=== PATIENT | male | born 1980 | race Caucasian/White ===

== ENCOUNTER 2017-01-10 12:30 | Emergency (ER) | payer BC, OTHER ==
[2017-01-10 12:38] VITALS: BP 144/88; PULSE 79; RESP 18; TEMP 97
--- NOTE | 2017-01-10 13:26 | ED ---
General Adult HPI - General Chief complaint: Extremity Problem,Nontraumatic Stated complaint: Arm Numbness/Blurred Vision Time Seen by Provider: 01/10/17 13:00 Source: patient, RN notes reviewed Mode of arrival: ambulatory Limitations: no limitations - History of Present Illness Initial comments: This is a 36-year-old male who presents emergency Department complaining of which sensation all 4 extremities. Patient states he was getting up to go work on his car and he noticed some dizziness and then he had some hot sensation in both of his legs though he did not lose any power or ability to move his legs. Patient then noticed that same strange feeling in both of his hands eventually the right hand cleared up but he has that weird sensation continuing his hand now he can feel everything that he touches any states he has not lost any strength. Patient has full range of motion of all 4 extremities. Patient denies any current headache. Patient denies any recent fever chills or cough. Patient denies any near syncopal episode or syncopal episode. Patient denies any chest pain palpitations difficulty breathing or shortness of breath. Patient does admit that he is a smoker and occasional pot smoker though he has not smoked any pot today. Patient denies any other drug use or alcohol use. Patient denies any abdominal pain. Patient denies nausea vomiting or diarrhea. Patient denies any problems with eating. Patient denies any pain of any sort. Patient's only complaint currently see has nowhere sensation in his right hand but he can feel everything and move everything. 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 - Related Data Home Medications Medication Instructions Recorded Confirmed No Known Home Medications [No 01/10/17 01/10/17 Known Home Medications] Allergies Allergy/AdvReac Type Severity Reaction Status Date / Time No Known Allergies Allergy Verified 01/10/17 13:14 Review of Systems ROS Statement: Those systems with pertinent positive or pertinent negative responses have been documented in the HPI. ROS Other: All systems not noted in ROS Statement are negative. 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 Patient is nontoxic and well- hydrated and is in no acute distress. ENT: Neck is soft and supple. No significant lymphadenopathy is noted. Oropharynx is clear. Moist mucous membranes. Neck has full range of motion without eliciting any pain. EYES: The sclera were anicteric and conjunctiva were pink and moist. Extraocular movements were intact and pupils were equal round and reactive to light. Eyelids were unremarkable. PULMONARY: Unlabored respirations. Good breath sounds bilaterally. No audible rales rhonchi or wheezing was noted. CARDIOVASCULAR: There is a regular rate and rhythm without any murmurs gallops or rubs. ABDOMEN: Soft and nontender with normal bowel sounds. No palpable organomegaly was noted. There is no palpable pulsatile mass. SKIN: Skin is clear with no lesions or rashes and otherwise unremarkable. NEUROLOGIC: Patient is alert and oriented x3. Cranial nerves II through XII are grossly intact. Motor and sensory are also intact. Normal speech, volume and content. Symmetrical smile. MUSCULOSKELETAL: Normal extremities with adequate strength and full range of motion. No lower extremity swelling or edema. No calf tenderness. LYMPHATICS: No significant lymphadenopathy is noted PSYCHIATRIC: Normal psychiatric evaluation. Normal interpersonal interactions appears functionally intact in deals appropriately with others. No signs of depression. No signs of anxiety. Limitations: no limitations Course Vital Signs 01/10/17 12:35 Temperature 97.0 F L Pulse Rate 79 Respiratory 18 Rate Blood Pressure 144/88 O2 Sat by Pulse 100 Oximetry Medical Decision Making - Medical Decision Making EKG shows normal sinus rhythm at 64 bpm IA interval is 170 QRS 106 QT interval 410 QTC is 422. Patient's EKG does show some T-wave inversions in precordial leads as compared to an old EKG and there are no new changes. I reevaluated the patient I went in the room he was using his left hand to operate his phone without any problem or distress. Patient states he was feeling a little better at this time. - Lab Data Result diagrams: 01/10/17 13:25 01/10/17 13:25 Lab Results 01/10/17 01/10/17 Range/Units 13:25 13:25 WBC 7.5 (3.8-10.6) k/uL RBC 4.69 (4.30-5.90) m/uL Hgb 14.6 (13.0-17.5) gm/dL Hct 42.9 (39.0-53.0) % MCV 91.5 (80.0-100.0) fL MCH 31.1 (25.0-35.0) pg MCHC 34.0 (31.0-37.0) g/dL RDW 13.0 (11.5-15.5) % Plt Count 179 (150-450) k/uL Neutrophils % 77 % Lymphocytes % 15 % Monocytes % 5 % Eosinophils % 1 % Basophils % 0 % Neutrophils # 5.8 (1.3-7.7) k/uL Lymphocytes # 1.1 (1.0-4.8) k/uL Monocytes # 0.4 (0-1.0) k/uL Eosinophils # 0.1 (0-0.7) k/uL Basophils # 0.0 (0-0.2) k/uL Sodium 142 (137-145) mmol/L Potassium 4.3 (3.5-5.1) mmol/L Chloride 107 (98-107) mmol/L Carbon Dioxide 25 (22-30) mmol/L Anion Gap 10 mmol/L BUN 11 (9-20) mg/dL Creatinine 1.04 (0.66-1.25) mg/dL Est GFR (MDRD) Af Amer >60 (>60 ml/min/1.73 sqM) Est GFR (MDRD) Non-Af >60 (>60 ml/min/1.73 sqM) Glucose 93 (74-99) mg/dL Calcium 9.2 (8.4-10.2) mg/dL Magnesium 2.0 (1.6-2.3) mg/dL Total Bilirubin 1.0 (0.2-1.3) mg/dL AST 19 (17-59) U/L ALT 24 (21-72) U/L Alkaline Phosphatase 88 (38-126) U/L Total Protein 7.4 (6.3-8.2) g/dL Albumin 4.2 (3.5-5.0) g/dL Disposition Clinical Impression: Paresthesias Disposition: HOME SELF-CARE Condition: Good Instructions: Paresthesia (ED) Referrals: None,Stated [Primary Care Provider] - 1-2 days Time of Disposition: 14:05
[2017-01-10 13:38] LABS: Basophils % (A) 0 %; CH 31.2; CHCM 34.2; Eosinophils # (A) 0.1 k/uL (0-0.7); Eosinophils % (A) 1 %; HCT 42.9 % (39.0-53.0); HGB 14.6 gm/dL (13.0-17.5); Luc # (Auto) 0.09; Luc % (Auto) 1; Lymphocytes # (A) 1.1 k/uL (1.0-4.8); Lymphocytes % (A) 15 %; MCH 31.1 pg (25.0-35.0); MCV 91.5 fL (80.0-100.0); Monocytes # (A) 0.4 k/uL (0-1.0); Monocytes % (A) 5 %; Neutrophils # (A) 5.8 k/uL (1.3-7.7); Neutrophils % (A) 77 %; RBC 4.69 m/uL (4.30-5.90); WBC 7.5 k/uL (3.8-10.6); WBC (Perox) 7.59
[2017-01-10 13:47] LABS: ALT 24 U/L (21-72); AST 19 U/L (17-59); Alkaline Phosphatase 88 U/L (38-126); Anion Gap 10 mmol/L; Blood Urea Nitrogen 11 mg/dL (9-20); Calcium 9.2 mg/dL (8.4-10.2); Carbon Dioxide 25 mmol/L (22-30); Chloride 107 mmol/L (98-107); Glucose 93 mg/dL (74-99); Non-African American GFR(MDRD) >60 (>60 ml/min/1.73 sqM); Potassium 4.3 mmol/L (3.5-5.1); Sodium 142 mmol/L (137-145); Total Protein 7.4 g/dL (6.3-8.2)
== END 2017-01-10 14:18 | disposition home or self-care (01) ==
LOC: EC 12:30
DX: R20.2 Paresthesia of skin (principal); F17.200 Nicotine dependence, unspecified, uncomplicated
CPT/HCPCS: 36415; 80053; 83735; 85025; 93005; 99284

== ENCOUNTER 2018-05-02 14:01 | Inpatient (IN) | payer BC, OTHER ==
[2018-05-02] MEDS ORDERED: SODIUM CHLORIDE 0.9% 1,000 ML IV STA (14:42)
--- NOTE | 2018-05-02 15:13 | ED ---
General Adult HPI - General Chief complaint: Neuro Symptoms/Deficit Stated complaint: Slurred speech/weakness Time Seen by Provider: 05/02/18 14:36 Source: patient, RN notes reviewed, old records reviewed Mode of arrival: ambulatory Limitations: no limitations - History of Present Illness Initial comments: This is a 2-year-old male to the ER for evaluation today. Patient has evaluation regarding 3 days of neurological complaint, patient is had some slurred speech difficulties and wants to. Patient episode of weakness on Wednesday, symptoms started on Wednesday night. Patient's significant other was able to get patient coming to the ER today for evaluation. Patient does have history of smoking, denies drugs or alcohol, occasionally uses marijuana, patient also has remote cardiac history of what she is unsure. Patient is recent travel history no sick contacts no fevers, no headaches. No visual no vision changes and no hearing changes. Currently patient still states he has trouble finding his words and history - Related Data Home Medications Medication Instructions Recorded Confirmed No Known Home Medications 01/10/17 05/02/18 Allergies Allergy/AdvReac Type Severity Reaction Status Date / Time No Known Allergies Allergy Verified 05/02/18 14:40 Review of Systems ROS Statement: Those systems with pertinent positive or pertinent negative responses have been documented in the HPI. ROS Other: All systems not noted in ROS Statement are negative. 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) Past Psychological History: No Psychological Hx Reported Smoking Status: Current every day smoker Past Alcohol Use History: None Reported Past Drug Use History: Marijuana - Past Family History Father History Unknown: Yes Mother Family Medical History: Cancer Additional Family Medical History / Comment(s): mom and grandmother both had breast cancer General Exam - General Exam Comments Initial Comments: nih 1 Limitations: no limitations General appearance: alert, in no apparent distress Head exam: Present: atraumatic, normocephalic, normal inspection Eye exam: Present: normal appearance, PERRL, EOMI. Absent: scleral icterus, conjunctival injection, periorbital swelling ENT exam: Present: normal exam, mucous membranes moist Neck exam: Present: normal inspection. Absent: tenderness, meningismus, lymphadenopathy Respiratory exam: Present: normal lung sounds bilaterally. Absent: respiratory distress, wheezes, rales, rhonchi, stridor Cardiovascular Exam: Present: regular rate, normal rhythm, normal heart sounds. Absent: systolic murmur, diastolic murmur, rubs, gallop, clicks GI/Abdominal exam: Present: soft, normal bowel sounds. Absent: distended, tenderness, guarding, rebound, rigid Extremities exam: Present: normal inspection, full ROM, normal capillary refill. Absent: tenderness, pedal edema, joint swelling, calf tenderness Back exam: Present: normal inspection Neurological exam: Present: alert, oriented X3, CN II-XII intact Psychiatric exam: Present: normal affect, normal mood Skin exam: Present: warm, dry, intact, normal color. Absent: rash Course Vital Signs 05/02/18 05/02/18 05/02/18 14:10 15:00 16:00 Temperature 98.5 F 97.2 F L 98.0 F Pulse Rate 68 58 L 52 L Respiratory 18 16 16 Rate Blood Pressure 128/78 122/70 137/88 O2 Sat by Pulse 98 99 99 Oximetry 05/02/18 17:00 Temperature Pulse Rate 50 L Respiratory 18 Rate Blood Pressure 142/80 O2 Sat by Pulse 98 Oximetry - Reevaluation(s) Reevaluation #1: This findings and results of patient, questions answered EKG Findings - EKG Comments: EKG Findings:: EKG shows sinus rhythm rate of 61, [place] 172, QRS 90, QTc 434 Medical Decision Making - Medical Decision Making 38 male the ER for evaluation positive stroke, positive CVA, patient to be admitted for neurological evaluation - Lab Data Result diagrams: 05/04/18 05:48 05/04/18 05:48 Lab Results 05/02/18 05/02/18 05/02/18 Range/Units 15:10 15:10 15:10 WBC 5.8 (3.8-10.6) k/uL RBC 4.40 (4.30-5.90) m/uL Hgb 13.4 (13.0-17.5) gm/dL Hct 39.9 (39.0-53.0) % MCV 90.6 (80.0-100.0) fL MCH 30.4 (25.0-35.0) pg MCHC 33.5 (31.0-37.0) g/dL RDW 13.4 (11.5-15.5) % Plt Count 156 (150-450) k/uL Neutrophils % 61 % Lymphocytes % 29 % Monocytes % 7 % Eosinophils % 2 % Basophils % 0 % Neutrophils # 3.5 (1.3-7.7) k/uL Lymphocytes # 1.7 (1.0-4.8) k/uL Monocytes # 0.4 (0-1.0) k/uL Eosinophils # 0.1 (0-0.7) k/uL Basophils # 0.0 (0-0.2) k/uL PT (9.0-12.0) sec INR (<1.2) APTT (22.0-30.0) sec Sodium 138 (137-145) mmol/L Potassium 4.0 (3.5-5.1) mmol/L Chloride 108 H (98-107) mmol/L Carbon Dioxide 25 (22-30) mmol/L Anion Gap 5 mmol/L BUN 10 (9-20) mg/dL Creatinine 0.90 (0.66-1.25) mg/dL Est GFR (CKD-EPI)AfAm >90 (>60 ml/min/1.73 sqM) Est GFR (CKD-EPI)NonAf >90 (>60 ml/min/1.73 sqM) Glucose 91 (74-99) mg/dL Calcium 9.0 (8.4-10.2) mg/dL Total Bilirubin 0.6 (0.2-1.3) mg/dL AST 18 (17-59) U/L ALT 25 (21-72) U/L Alkaline Phosphatase 80 (38-126) U/L Total Creatine Kinase 46 L (55-170) U/L CK-MB (CK-2) <0.2 (0.0-2.4) ng/mL CK-MB (CK-2) Rel Index Troponin I <0.012 (0.000-0.034) ng/mL Total Protein 6.6 (6.3-8.2) g/dL Albumin 3.8 (3.5-5.0) g/dL 05/02/18 Range/Units 15:10 WBC (3.8-10.6) k/uL RBC (4.30-5.90) m/uL Hgb (13.0-17.5) gm/dL Hct (39.0-53.0) % MCV (80.0-100.0) fL MCH (25.0-35.0) pg MCHC (31.0-37.0) g/dL RDW (11.5-15.5) % Plt Count (150-450) k/uL Neutrophils % % Lymphocytes % % Monocytes % % Eosinophils % % Basophils % % Neutrophils # (1.3-7.7) k/uL Lymphocytes # (1.0-4.8) k/uL Monocytes # (0-1.0) k/uL Eosinophils # (0-0.7) k/uL Basophils # (0-0.2) k/uL PT 10.8 (9.0-12.0) sec INR 1.1 (<1.2) APTT 23.8 (22.0-30.0) sec Sodium (137-145) mmol/L Potassium (3.5-5.1) mmol/L Chloride (98-107) mmol/L Carbon Dioxide (22-30) mmol/L Anion Gap mmol/L BUN (9-20) mg/dL Creatinine (0.66-1.25) mg/dL Est GFR (CKD-EPI)AfAm (>60 ml/min/1.73 sqM) Est GFR (CKD-EPI)NonAf (>60 ml/min/1.73 sqM) Glucose (74-99) mg/dL Calcium (8.4-10.2) mg/dL Total Bilirubin (0.2-1.3) mg/dL AST (17-59) U/L ALT (21-72) U/L Alkaline Phosphatase (38-126) U/L Total Creatine Kinase (55-170) U/L CK-MB (CK-2) (0.0-2.4) ng/mL CK-MB (CK-2) Rel Index Troponin I (0.000-0.034) ng/mL Total Protein (6.3-8.2) g/dL Albumin (3.5-5.0) g/dL - Radiology Data Radiology results: report reviewed (CT brain CTA head and neck shows positive CVA), image reviewed Disposition Clinical Impression: Cerebrovascular accident Disposition: ADMITTED IP TO THIS [facility] Condition: Fair Is patient prescribed a controlled substance at d/c from ED?: No
[2018-05-02 15:33] LABS: Basophils % (A) 0 %; Eosinophils # (A) 0.1 k/uL (0-0.7); Eosinophils % (A) 2 %; HCT 39.9 % (39.0-53.0); HGB 13.4 gm/dL (13.0-17.5); Lymphocytes # (A) 1.7 k/uL (1.0-4.8); Lymphocytes % (A) 29 %; MCH 30.4 pg (25.0-35.0); MCHC 33.5 g/dL (31.0-37.0); MCV 90.6 fL (80.0-100.0); Mean Platelet Volume 8.2; Monocytes # (A) 0.4 k/uL (0-1.0); Monocytes % (A) 7 %; Neutrophils # (A) 3.5 k/uL (1.3-7.7); Neutrophils % (A) 61 %; Platelet Count 156 k/uL (150-450); RDW 13.4 % (11.5-15.5); WBC 5.8 k/uL (3.8-10.6)
[2018-05-02 15:36] LABS: INR 1.1 (<1.2); Partial Thromboplastin Time 23.8 sec (22.0-30.0); Prothrombin Time 10.8 sec (9.0-12.0)
[2018-05-02 15:40] LABS: ALT 25 U/L (21-72); AST 18 U/L (17-59); Albumin 3.8 g/dL (3.5-5.0); Alkaline Phosphatase 80 U/L (38-126); Anion Gap 5 mmol/L; Blood Urea Nitrogen 10 mg/dL (9-20); Carbon Dioxide 25 mmol/L (22-30); Chloride 108 mmol/L (98-107); Glucose 91 mg/dL (74-99); Sodium 138 mmol/L (137-145); Total Bilirubin 0.6 mg/dL (0.2-1.3); Total Protein 6.6 g/dL (6.3-8.2)
[2018-05-02 15:45] LABS: Creatine Kinase 46 U/L (55-170)
[2018-05-02 15:57] LABS: Creatine Kinase MB <0.2 ng/mL (0.0-2.4); Troponin I <0.012 ng/mL (0.000-0.034)
--- NOTE | 2018-05-02 16:29 | CT ---
EXAMINATION TYPE: CT brain wo con for TPA DATE OF EXAM: 05/02/2018 COMPARISON: 08/09/2013 HISTORY: Neuro deficits, trouble speaking CT DLP: 1017.9 mGycm Automated exposure control for dose reduction was used. FINDINGS: There is no acute intracranial hemorrhage or suspicious extra-axial fluid collection. There is a foca l area of hypoattenuation involving both edwards and white matter seen of the insular cortex extending t o the lentiform nucleus and involving the left frontal lobe. This was not present on the prior exam o 2012. The ventricles and sulci are within normal limits in size. The globes are intact. Mild mucos al thickening is seen within the ethmoid sinuses. Remaining paranasal sinuses and mastoid air cells a re well aerated. IMPRESSION: Sequela of likely subacute infarct in the distribution of the the left middle cerebral artery involvi ng the insular cortex and left frontal lobe, currently sparing the basal ganglia. Timing of this infa rct could be better assessed with MRI.
--- NOTE | 2018-05-02 16:45 | CT ---
EXAMINATION TYPE: CT angio head neck DATE OF EXAM: 05/02/2018 HISTORY: Neuro deficits, slurred speech. COMPARISON: CT brain of the same date. CT DLP: 257.2 mGycm. Automated Exposure Control for Dose Reduction was Utilized. TECHNIQUE: CTA scan of the neck is performed with IV Contrast, patient injected with 65 mL of Isovue 370, axial images are obtained, coronal and sagittal reformatted images are reviewed. Three-D recons tructed images are created on an independent workstation and reviewed. FINDINGS: Carotid/Vascular Structures: There is conventional 3 vessel branch pattern of the aortic arch. There is an apparent course of the right vertebral artery as there is a high entrance into the transverse f oramen at the C4 vertebral level. Vertebral arteries appear patent with slight dominance on the right . There is no evidence of hemodynamically significant stenosis within either common carotid artery, car otid bulb, or internal carotid artery in its cervical portion. No evidence of vascular dissection or aneurysmal outpouching. The posterior communicating arteries are diminutive although the [place] of [place] appears intact. No focal occlusion of the major intracranial vasculature. Other: Area of hypoattenuation within the left insular cortex and frontal lobe is better appreciated on the CT brain of the same date. 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 Paraseptal emphysematous changes see n at the lung apices. Right hilar vascular prominence is partially visualized. Mild multilevel degene rative changes of the cervical spine are seen. IMPRESSION: No hemodynamically significant stenosis, dissection, or aneurysm within the head or neck . Known left-sided cytotoxic edema is better visualized on the prior CT brain of the same date.
[2018-05-02] MEDS ORDERED: ASPIRIN 325 MG TAB PO STA (16:52)
[2018-05-02] MEDS: SODIUM CHLORIDE 0.9% 1,000 ML IV SCH (17:37)
[2018-05-02 18:08] LABS: Appearance,Urine Clear (Clear); Bilirubin,Urine Negative (Negative); Blood,Urine Negative (Negative); Color,Urine Light Yellow; Glucose,Urine (UA) Negative (Negative); Ketones,Urine Negative (Negative); Leukocyte Esterase,Urine Negative (Negative); Nitrite,Urine Negative (Negative); Protein,Urine Negative (Negative); Specific Gravity,Urine 1.023 (1.001-1.035); Urobilinogen,Urine <2.0 mg/dL (<2.0)
[2018-05-02 18:26] LABS: Cocaine Screen,Urine Not Detected (NotDetected); Phencyclidine Screen,Urine Not Detected (NotDetected); Urn Cannabinoid Scrn Detected (NotDetected)
[2018-05-02 18:27] LABS: Amphetamine Screen,Urine Not Detected (NotDetected); Barbiturate Screen,Urine Not Detected (NotDetected); Benzodiazepines Screen,Urine Not Detected (NotDetected); Methadone Screen, Urine Not Detected (NotDetected); Opiate Screen,Urine Not Detected (NotDetected); Oxycodone Screen, Urine Not Detected (NotDetected); Tricyclic Antidepressant,Urine Not Detected (NotDetected)
--- NOTE | 2018-05-02 19:38 | P.CNNES ---
History of Present Illness Consult date: 05/02/18 Reason for Consult: Patient admitted with acute left hemispheric stroke. History of Present Illness: This patient is a 38-year-old right-handed white male who states that on Wednesday he was noticing he was having difficulty with use of his right hand. He states on Wednesday morning he awoke and was having a bowl of cereal and noted that he was having trouble holding the spoon in his right hand. He did not pay much attention to this finding at the time and apparently symptoms seem to escalate the next day. Apparently on Wednesday he was having difficulty with getting his speech out and had symptoms suggesting mild aphasia. He was also complaining of a headache at the time. The patient states he has not seen a primary care physician for several years. Apparently this was due to insurance problems in the past. He does work on a regular basis in a factory but still has not established with a new primary care physician. According to the patient in the past he has seen Dr. Hall in the family practice clinic. Patient states he continued to work but it was having difficulty with increasing symptoms of slurred speech and weakness yesterday and this morning. He finally decided to come to the emergency room at [facility] today for further evaluation. He was seen in the ER by Dr. Reid and was assessed for stroke evaluation with a NIH stroke scale. According to the nursing staff his NIH stroke scale was 1.0 in the ER due to aphasia. He denied any focal weakness. The patient was sent for a computed tomography scan of the brain and his CTA angiogram of the head and neck for further evaluation. CAT scan of the brain revealed evidence of a subacute infarction in the distribution of the left middle cerebral artery involving the insular cortex and left frontal lobe. No evidence of acute hemorrhage. Patient also underwent CTA angiogram of the head and neck which revealed no hemodynamically significant stenosis, dissection, or aneurysm within the head and neck region. There was some edema noted on the left side as noted on CAT scan. Patient was subsequently admitted to the hospital with acute stroke findings. He was not a candidate for TPA due to the acute findings on his CAT scan of the brain. He states he does have a history of heart valve surgery as a young child but is not aware of the details. He states he was treated at [facility] for this condition in the past. He thinks there was some heart surgery and valve surgery done at the time. The patient has no other significant stroke risk factors. There is no strong family history of stroke. We have recommended the patient to begin on one baby aspirin daily for secondary stroke prevention. He is now been admitted and neurology has been consulted for further evaluation and recommendations. Review of Systems Constitutional: Denies chills, Denies fever Eyes: denies blurred vision, denies pain Ears, nose, mouth and throat: Denies headache, Denies sore throat Cardiovascular: Denies chest pain, Denies shortness of breath Respiratory: Denies cough Gastrointestinal: Denies abdominal pain, Denies diarrhea, Denies nausea, Denies vomiting Musculoskeletal: Denies myalgias Integumentary: Denies pruritus, Denies rash Neurological: Reports aphasia, Reports change in mentation, Reports change in speech, Reports motor disturbance, Reports paresthesias, Reports tingling, Denies numbness, Denies weakness Psychiatric: Denies anxiety, Denies depression Endocrine: Denies fatigue, Denies weight change 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) Past Psychological History: No Psychological Hx Reported Smoking Status: Current every day smoker Past Alcohol Use History: None Reported Past Drug Use History: Marijuana Medications and Allergies Home Medications Medication Instructions Recorded Confirmed Type No Known Home Medications 01/10/17 05/02/18 History Allergies Allergy/AdvReac Type Severity Reaction Status Date / Time No Known Allergies Allergy Verified 05/02/18 14:40 Physical Examination - Vital Signs Vital Signs: Vital Signs Temp Pulse Pulse Resp BP BP Pulse Ox 05/02/18 18:02 48 L 05/02/18 18:01 96.6 F L 60 16 138/65 100 05/02/18 17:52 97.0 F L 56 L 18 137/80 98 05/02/18 17:00 50 L 18 142/80 98 05/02/18 16:00 98.0 F 52 L 16 137/88 99 05/02/18 15:00 97.2 F L 58 L 16 122/70 99 05/02/18 14:10 98.5 F 68 18 128/78 98 Intake and Output 05/02/18 05/02/18 05/02/18 06:59 14:59 22:59 Other: Weight 68.039 kg - Constitutional General appearance: average body habitus, cooperative - EENT EENT: PERRL, mucous membranes moist - Respiratory Respiratory: lungs clear, normal breath sounds - Cardiovascular Cardiovascular: regular rate, normal S1, normal S2 Extremities: no peripheral edema bilaterally - Gastrointestinal Gastrointestinal: normoactive bowel sounds - Integumentary Integumentary: normal - Neurologic Cranial nerve examination: PERRL, EOMI, VFF, V1/V2/V3 grossly intact, tongue midline, intact gag reflex, intact corneal reflex, facial droop (Patient has right upper motor neuron facial weakness pattern.), normal palatal elevation Speech examination: intact Motor examination - right side: 4/5: biceps, triceps, wrist flexion, wrist extension, cylinder batcher, hip flexors, knee extensors, dorsiflexion, toe extension (EHL) , plantarflexion Motor examination - left side: 4/5: biceps, triceps, wrist flexion, wrist extension, cylinder batcher, hip flexors, knee extensors, dorsiflexion, toe extension (EHL) , plantarflexion Detailed sensory examination: intact Reflex and gait examination: intact Reflexes: 1+: ankle, bicep, knee, tricep - Musculoskeletal Musculoskeletal: no pain - Psychiatric Psychiatric: mood/affect appropriate, cooperative Results - Laboratory Findings CBC and BMP: 05/02/18 15:10 05/02/18 15:10 Abnormal Lab Findings: Abnormal Labs 05/02/18 05/02/18 05/02/18 15:10 15:10 17:50 Chloride 108 H Total Creatine Kinase 46 L U Marijuana (THC) Screen Detected H Assessment and Plan (1) Left acute arterial ischemic stroke, MCA (middle cerebral artery) Current Visit: Yes Status: Acute Code(s): I63.512 - CEREB INFRC D/T UNSP OCCLS OR STENOS OF LEFT MID CEREB ART SNOMED Code(s): 707200652 (2) History of heart surgery Current Visit: Yes Status: Acute Code(s): Z98.890 - OTHER SPECIFIED POSTPROCEDURAL STATES SNOMED Code(s): 788154537 (3) Cryptogenic stroke Current Visit: Yes Status: Acute Code(s): I63.9 - CEREBRAL INFARCTION, UNSPECIFIED SNOMED Code(s): 467572817 (4) Aphasia Current Visit: Yes Status: Acute Code(s): R47.01 - APHASIA SNOMED Code(s) : 27734447 Plan: This patient is a 38-year-old right-handed white male who was brought into the emergency room today for evaluation of difficulty with his speech and headache symptoms. Symptoms had started on Wednesday of this past week with difficulty with the use of his right hand due to weakness. His symptoms worsened and he was brought into the ER today for further evaluation. He was seen in the emergency room at [facility] by Dr. Reid. He was sent for a computed tomography scan of the brain and CTA angiogram of the head and neck. Results are as noted above. His NIH stroke scale in the ER as performed by Dr. Reid was noted to be 1.0. He was not a candidate for TPA. His CAT scan revealed acute stroke and he was admitted for further stroke evaluation and treatment. The patient has no previous history of stroke and no strong family history of stroke in the past. He does have history of some form of congenital heart disease which according to the patient he underwent some valve surgery as a young child at [facility]. We have recommended a cardiology consultation for LEEANNE procedure for this patient who presents with possible cryptogenic stroke and/or heart valve disease. We will also obtain MRI of the brain for further evaluation of the area of acute left hemispheric stroke. We have recommended the patient to start on one baby aspirin for secondary stroke prevention. We will have a consultation with speech therapy. His overall prognosis at this time remains very guarded. We will continue close neurological follow-up of this patient during this admission. Time with Patient: Greater than 30
[2018-05-02] MEDS ORDERED: ACETAMINOPHEN TAB 500 MG TAB PO PRN (20:51)
[2018-05-02] MEDS ORDERED: ALPRAZolam 0.25 MG TAB PO PRN (20:51)
--- NOTE | 2018-05-02 22:07 | HP ---
HISTORY AND PHYSICAL CHIEF COMPLAINTS: Weakness of the right side and as well as slurring of speech. HISTORY OF PRESENT ILLNESS: This 38-year-old gentleman with a past medical history of MRSA, remote history of cardiac surgery in [facility] at age of 1 [facility] being followed by no primary physician in the outpatient setting was noted to have some right-sided weakness. The patient was trying to eat a bowl of cereal right hand was found to be weak and patient also had some slurring of speech. Patient refused to come to the hospital and the difficulties persisted and because of increasing difficulty, the patient was taken to [facility] and admitted for further evaluation and treatment. The patient underwent a CT angiography which showed no hemodynamically significant stenosis. The CT scan of the brain also did not show any acute abnormality. Patient admitted for further evaluation and treatment. The CT scan of the brain showed possible sequelae of subacute infarct in the distribution of the left MCA territory involving the insular cortex and left frontal lobe. There is no history of fever, rigors and no history of headache, loss of consciousness or seizures. PAST MEDICAL HISTORY: 1. Past medical history of Methicillin-resistant Staphylococcus aureus. 2. Remote history of cardiac surgery as mentioned earlier. Details unknown. The patient reports transposition of the valves and multiple holes in the heart. MEDICATIONS: None. ALLERGIES: None. FAMILY HISTORY: Of breast cancer in the family. SOCIAL HISTORY: History of smoking. No history of alcohol intake. REVIEW OF SYSTEMS: ENT: No diminished vision. No diminished hearing. CARDIOVASCULAR: As mentioned earlier. Respirations: No cough. No hemoptysis. GI: No nausea or vomiting. : No dysuria or hematuria. Nervous system: as mentioned earlier. ALLERGY/IMMUNOLOGY: No asthma or hay fever. MUSCULOSKELETAL: As mentioned earlier. HEMATOLOGY/ONCOLOGY: No history of anemia. Endocrine: No history of diabetes or hypertension. CONSTITUTIONAL: As mentioned earlier. Dermatology: Negative. Rheumatology: Negative. Psychiatry: As mentioned earlier. PHYSICAL EXAMINATION: Alert and oriented x three. Pulse 55, blood pressure 140/70, respiration 16, temperature 97.3, pulse ox 99% on room air. HEENT: Conjunctivae normal. Oral mucosa moist. Neck is no jugular venous distention. No carotid bruit. No lymph node enlargement. Cardiovascular system: S1, S2 muffled. Respiratory: Breath sounds diminished pressure in the bases. A few scattered rhonchi. No crackles. ABDOMEN: Soft, nontender. No mass palpable. Legs: No edema and no swelling. NERVOUS SYSTEM: Higher functions as mentioned earlier, patient still has some slurring of speech. Otherwise no facial deviation. Moves all 4 limbs. No sensory or cerebellar dysfunction. No focal weakness. Lymphatics: No lymph nodes palpable in the neck, axillae or groin. Skin: No ulcer, rash or bleeding. LABS: At this time, CBC within normal limits. Chloride is 108. UA noted. Drug screen positive THC. ASSESSMENT: 1. Acute stroke involving the right side caused by left MCA territory infarction. 2. History of THC. 3. History of nicotine dependence. 4. History of MRSA. 5. History of cardiac valve surgery while infancy. RECOMMENDATIONS AND DISCUSSION: In this 38-year-old gentleman who presented with multiple complex medical issues, at this time, I recommend to continue current management and continue symptomatic treatment. We will initiate aspirin and Lipitor. I would also recommend Cardiology consultation, possibly LEEANNE to rule out the possibility of a cardiac embolism. Smoking cessation Habitrol. DVT prophylaxis. See orders for details. Prognosis guarded because of multiple complex medical issues. Discussed at length with the patient and family. Further recommendations to follow. A 2D echo with Doppler has been ordered as well as less MRI. Dr. Bhatt has already seen the patient. We will follow the patient closely with Dr. Bhatt. Prognosis guarded. Further recommendations to follow. MMODL / IJN: [id number] /
[2018-05-02] MEDS: MELATONIN 3 MG TABLET PO SCH (23:01)
[2018-05-02] MEDS: HEPARIN SODIUM,PORCINE 5,000 UNIT/ML 1 ML VIAL SQ SCH (23:01)
[2018-05-02] MEDS: ATORVASTATIN 20 MG TAB PO SCH (23:02)
[2018-05-03] MEDS: SODIUM CHLORIDE 0.9% 1,000 ML IV SCH ×3 (05:25→20:03)
[2018-05-03 06:24] LABS: Basophils % (A) 1 %; Eosinophils # (A) 0.2 k/uL (0-0.7); Eosinophils % (A) 4 %; HCT 40.5 % (39.0-53.0); HGB 13.4 gm/dL (13.0-17.5); Lymphocytes # (A) 1.5 k/uL (1.0-4.8); Lymphocytes % (A) 32 %; MCH 30.8 pg (25.0-35.0); MCHC 33.1 g/dL (31.0-37.0); MCV 92.8 fL (80.0-100.0); Mean Platelet Volume 8.1; Monocytes # (A) 0.3 k/uL (0-1.0); Monocytes % (A) 7 %; Neutrophils # (A) 2.5 k/uL (1.3-7.7); Neutrophils % (A) 55 %; Platelet Count 152 k/uL (150-450); RBC 4.36 m/uL (4.30-5.90); RDW 13.7 % (11.5-15.5); WBC 4.6 k/uL (3.8-10.6)
[2018-05-03] MEDS: PANTOPRAZOLE 40 MG TABLET PO SCH (06:28)
[2018-05-03 06:51] LABS: Anion Gap 4 mmol/L; Blood Urea Nitrogen 13 mg/dL (9-20); Calcium 8.6 mg/dL (8.4-10.2); Carbon Dioxide 24 mmol/L (22-30); Chloride 112 mmol/L (98-107); Cholesterol 117 mg/dL (<200); Glucose 99 mg/dL (74-99); HDL Cholesterol 25 mg/dL (40-60); LDL Cholesterol,Calculated 65 mg/dL (0-99); Potassium 4.6 mmol/L (3.5-5.1); Sodium 140 mmol/L (137-145); Triglycerides 136 mg/dL (<150)
[2018-05-03] MEDS: NICOTINE 14MG/24HR PATCH TRANSDERM SCH (07:54)
[2018-05-03] MEDS: HEPARIN SODIUM,PORCINE 5,000 UNIT/ML 1 ML VIAL SQ SCH ×2 (07:54→20:12)
[2018-05-03] MEDS: ASPIRIN 81 MG PO SCH (07:54)
--- NOTE | 2018-05-03 09:27 | MR ---
MR brain without contrast HISTORY: Cerebral vascular accident Multiplanar multisequence imaging of the brain. Correlation to CT brain 05/02/2018 There is restricted diffusion with corresponding hyperintensity on inversion recovery and T2-weighted sequences in the distribution described in patient's prior CT involving the insula, scattered small foci within the left parietal lobe, and left frontal lobe. There is no evident hemorrhage. There are normal vascular flow voids. No significant mass effect or hydrocephalus. Some additional white matter hyperintensities on inversion recovery and T2-weighted sequences compatible with chronic small vesse l ischemia. Focus of encephalomalacia present in the head of the caudate on the right as noted on CT. The orbits show symmetric appearance. Mild mucosal disease present within the maxillary sinuses. The corpus callosum, pituitary, cervical medullary junction, cerebellopontine angles are within normal li mits. IMPRESSION: Subacute ischemia as described with additional suggestion of areas of chronic small vesse l ischemia.
--- NOTE | 2018-05-03 10:17 | ECHOF ---
Referral Reason:Thrombus MEASUREMENTS -------- HEIGHT: 180.3 cm WEIGHT: 61.7 kg BP: 140/73 RVIDd: 5.3 cm (< 3.3) IVSd: 0.9 cm (0.6 - 1.1) LVIDd: 2.4 cm (3.9 - 5.3) LVPWd: 0.8 cm (0.6 - 1.1) IVSs: 0.8 cm LVIDs: 0.7 cm LVPWs: 0.7 cm MV EXCURSION: 15.618 mm (> 18.000) MV EF SLOPE: 57 mm/s (70 - 150) EPSS: 0.2 cm MV E Felix: 0.94 m/s MV DecT: 230 ms MV A Felix: 0.28 m/s MV E/A Ratio: 3.34 AR PHT: 232 ms RAP: 15.00 mmHg RVSP: 112.66 mmHg FINDINGS -------- Resting bradycardia (HR<60bpm). This was a technically good study. The cavity size is decreased. Left ventricular wall thickness is normal. Overall left ventricular systolic function is normal with, an EF between 55 - 60 %. There is septal flattening in diastole and systole which is consistent with right ventricular pressure and volume overload. The right ventricle is severely enlarged. 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 The right atrium is mildly enlarged. The mitral valve leaflets are mildly thickened. Mild mitral regurgitation is present. Moderate tricuspid regurgitation present. There is severe pulmonary hypertension. The right ventr icular systolic pressure, as measured by Doppler, is 112.66mmHg. Pulmonic valve appears structurally normal. The aortic root size is normal. The inferior vena cava is mildly dilated. The pericardium is normal. CONCLUSIONS -------- 1. Resting bradycardia (HR<60bpm). 2. This was a technically good study. 3. The cavity size is decreased. 4. Left ventricular wall thickness is normal. 5. Overall left ventricular systolic function is normal with, an EF between 55 - 60 %. 6. The right ventricle is severely enlarged. 7. 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 The left atrium is normal in size. 9. The right atrium is mildly enlarged. 10. The mitral valve leaflets are mildly thickened. 11. Mild mitral regurgitation is present. 12. Moderate tricuspid regurgitation present. 13. There is severe pulmonary hypertension. 14. The right ventricular systolic pressure, as measured by Doppler, is 112.66mmHg. 15. Pulmonic valve appears structurally normal. 16. The aortic root size is normal. 17. The inferior vena cava is mildly dilated. 18. The pericardium is normal. GARMENT PRESSER: Frannie Bailey RDCS
[2018-05-03] MEDS ORDERED: ASPIRIN 325 MG TAB PO SCH (12:00)
--- NOTE | 2018-05-03 14:23 | P.CRDCN ---
History of Present Illness Consult date: 05/03/18 Chief complaint: Right sided weakness History of present illness: This is a pleasant 38-year-old gentleman with a past medical history significant for congenital heart disease where the patient underwent 2 heart surgery as a child at age 1 and 2-year-old and he underwent Mustard procedure for what it seems to be transpositions of the great arteries. The patient was in his usual state of health until this past Wednesday when he was at home eating his dinner and he noticed right arm was not responding well and was weak. At that point the patient did not seek any medical attention and the following day he slept for the whole day. On Wednesday he developed headache as well as some slurred speech and difficult to find the griffin and what it seems to be expressive aphagia. At that point he decided to come to the emergency room. The patient was seen and evaluated by the neurology service and he underwent a computed tomography scan an MRI of the brain which seems to show possible subacute infarct in the distribution of the right middle cerebral artery. We requested to see the patient for further evaluation off transesophageal echocardiogram and rule out any cardiac source of embolization. The patient does not follow up with any operations lead since his open heart surgery as a child. He denies having any chest pain or discomfort, shortness of breath, dizziness or lightheadedness, or syncope. No fever and no chills. Unfortunately he is a smoker.the EKG showed sinus rhythm with nonspecific changes. He underwent an echocardiogram which revealed normal LV function with non-impacted RV and severe pulmonary hypertension exceeding 100 mmHg. The patient is hemodynamically stable at this point. Past Medical History Past Medical History: No Reported History Additional Past Medical History / Comment(s): rt side dominant. History of Any Multi-Drug Resistant Organisms: MRSA Date of last positivie culture/infection: 2007 MDRO Source:: buttocks Past Surgical History: No Surgical Hx Reported Additional Past Surgical History / Comment(s): valve replacement (baby) Past Anesthesia/Blood Transfusion Reactions: No Reported Reaction Past Psychological History: No Psychological Hx Reported Smoking Status: Current every day smoker Past Alcohol Use History: None Reported Past Drug Use History: Marijuana - Past Family History Father History Unknown: Yes Mother Family Medical History: Cancer Additional Family Medical History / Comment(s): mom and grandmother both had breast cancer Medications and Allergies Home Medications Medication Instructions Recorded Confirmed Type No Known Home Medications 01/10/17 05/02/18 History Allergies Allergy/AdvReac Type Severity Reaction Status Date / Time No Known Allergies Allergy Verified 05/02/18 14:40 Physical Exam Vitals: Vital Signs Temp Pulse Pulse Resp BP BP Pulse Ox 05/03/18 12:00 96.3 F L 54 L 18 135/80 99 05/03/18 07:38 97.1 F L 47 L 16 130/78 98 05/03/18 04:00 97.3 F L 58 L 16 140/73 98 05/03/18 00:00 97.3 F L 50 L 16 118/66 98 05/02/18 20:00 97.3 F L 55 L 16 145/79 99 05/02/18 18:02 48 L 05/02/18 18:01 96.6 F L 60 16 138/65 100 05/02/18 17:52 97.0 F L 56 L 18 137/80 98 05/02/18 17:00 50 L 18 142/80 98 05/02/18 16:00 98.0 F 52 L 16 137/88 99 05/02/18 15:00 97.2 F L 58 L 16 122/70 99 Intake and Output 05/02/18 05/03/18 05/03/18 22:59 06:59 14:59 Intake Total 1000 600 Output Total 900 Balance 1000 -300 Intake: Intake, IV Titration 1000 Amount Sodium Chloride 0.9% 1, 1000 000 ml @ 100 mls/hr IV . Q10H [facility] Rx#:[id number] Oral 600 Output: Urine 900 Other: # Voids 1 Weight 62 kg - Constitutional General appearance: no acute distress - Respiratory Respiratory: bilateral: CTA - Cardiovascular Rhythm: regular Heart sounds: normal: S1, S2 Abnormal Heart Sounds: systolic murmur Results 05/03/18 05:31 05/03/18 05:31 Cardiac Enzymes 05/02/18 05/02/18 Range/Units 15:10 15:10 AST 18 (17-59) U/L CK-MB (CK-2) <0.2 (0.0-2.4) ng/mL Troponin I <0.012 (0.000-0.034) ng/mL Coagulation 05/02/18 Range/Units 15:10 PT 10.8 (9.0-12.0) sec APTT 23.8 (22.0-30.0) sec Lipids 05/03/18 Range/Units 05:31 Triglycerides 136 (<150) mg/dL Cholesterol 117 (<200) mg/dL HDL Cholesterol 25 L (40-60) mg/dL CBC 05/02/18 05/03/18 Range/Units 15:10 05:31 WBC 5.8 4.6 (3.8-10.6) k/uL RBC 4.40 4.36 (4.30-5.90) m/uL Hgb 13.4 13.4 (13.0-17.5) gm/dL Hct 39.9 40.5 (39.0-53.0) % Plt Count 156 152 (150-450) k/uL Comprehensive Metabolic Panel 05/02/18 05/03/18 Range/Units 15:10 05:31 Sodium 138 140 (137-145) mmol/L Potassium 4.0 4.6 (3.5-5.1) mmol/L Chloride 108 H 112 H (98-107) mmol/L Carbon Dioxide 25 24 (22-30) mmol/L BUN 10 13 (9-20) mg/dL Creatinine 0.90 1.00 (0.66-1.25) mg/dL Glucose 91 99 (74-99) mg/dL Calcium 9.0 8.6 (8.4-10.2) mg/dL AST 18 (17-59) U/L ALT 25 (21-72) U/L Alkaline Phosphatase 80 (38-126) U/L Total Protein 6.6 (6.3-8.2) g/dL Albumin 3.8 (3.5-5.0) g/dL Current Medications Generic Name Dose Route Start Last Admin Trade Name Freq PRN Reason Stop Dose Admin Acetaminophen 500 mg 05/02/18 20:51 Tylenol Tab PO Q6HR PRN Fever and/ or MILD Pain Alprazolam 0.25 mg 05/02/18 20:51 Xanax PO TID PRN Anxiety Aspirin 81 mg 05/03/18 09:00 05/03/18 07:54 Aspirin PO 81 mg DAILY YANA Administration Atorvastatin Calcium 20 mg 05/02/18 21:00 05/02/18 23:02 Lipitor PO 20 mg HS YANA Administration Heparin Sodium (Porcine) 5,000 unit 05/02/18 21:00 05/03/18 07:54 Heparin SQ 5,000 unit Q12HR YANA Administration Sodium Chloride 1,000 mls @ 100 mls/hr 05/02/18 17:00 05/03/18 05:25 Saline 0.9% IV 100 mls/hr .Q10H YANA Administration Melatonin 3 mg 05/02/18 21:00 05/02/18 23:01 Melatonin PO Not Given HS YANA Nicotine 1 patch 05/03/18 09:00 05/03/18 07:54 Habitrol 14mg/24hr Patch TRANSDERM Not Given DAILY YANA Pantoprazole Sodium 40 mg 05/03/18 07:30 05/03/18 06:28 Protonix PO Not Given AC-BRKFST YANA Intake and Output 05/02/18 05/03/18 05/03/18 22:59 06:59 14:59 Intake Total 1000 600 Output Total 900 Balance 1000 -300 Intake: Intake, IV Titration 1000 Amount Sodium Chloride 0.9% 1, 1000 000 ml @ 100 mls/hr IV . Q10H [facility] Rx#:[id number] Oral 600 Output: Urine 900 Other: # Voids 1 Weight 62 kg 05/03/18 05:31 05/03/18 05:31 Assessment and Plan Assessment: Assessment #1 TIA/CVA #2 congenital heart disease as described above #3 significant history of smoking Plan #1 the patient will be scheduled to undergo a LEEANNE tomorrow #2 we'll continue following up with him. Thank you for allowing participate in his care and we'll continue following up with the patient
--- NOTE | 2018-05-03 16:35 | PN ---
PROGRESS NOTE DATE OF SERVICE: 05/03/2018. This 38-year-old gentleman who was admitted with significant stroke of the right-sided caused by left MCA territory infarction is also being evaluated for any evidence of embolism. Brain MRA confirmed the lesion. 2D echo was noted. No chest pain. No palpitations. No fever. PHYSICAL EXAM: Alert and oriented x3. Pulse is 54, blood pressure 135/80, respiration 18, temperature 96.8, pulse ox 99% on room air. HEENT: Conjunctivae normal. Oral mucosa moist. NECK: No jugular venous distention. No carotid bruit. No lymph node enlargement. CARDIOVASCULAR: S1, S2. RESPIRATORY: Breath sounds diminished in the bases. No rhonchi, no crackles. ABDOMEN: Soft, nontender. No mass palpable. LEGS: No edema. NERVOUS SYSTEM: Minimal weakness on the right side. Speech much improved. SKIN: No ulcer, rash. LABS: CBC within normal limits. Lipid panel normal. Drug screen THC positive. ASSESSMENT: 1. Acute stroke involving the right side cause by left MCA territory infarction, possible cerebral embolism. 2. History of THC. 3. History of nicotine dependence. 4. History of MRSA. 5. History of cardiac valve surgery while in infancy. RECOMMENDATIONS AND DISCUSSION: I recommend to continue current management, symptomatic treatment. Otherwise continue antiplatelet agents. I would also recommend a cardiology consultation, possible LEEANNE. Discussed with Dr. Oswald and guarded prognosis, otherwise closely follow with Neurology. Discussed with the family. Prognosis guarded. Further recommendations to follow. Family understands. MMODL / IJN: [id number] /
[2018-05-03 17:38] LABS: Cardiolipin Ab IgG Interp NEGATIVE (NEGATIVE); Cardiolipin Ab IgM Interp NEGATIVE (NEGATIVE); Cardiolipin IgA Antibody <0.5 U/mL; Cardiolipin IgM Antibody 0.2 U/mL
--- NOTE | 2018-05-03 19:19 | P.PN ---
Subjective Progress Note Date: 05/03/18 This patient is a 38-year-old male who was seen yesterday on neurology consultation for acute stroke findings. Patient presented to the emergency room yesterday with symptoms of speech impairment and mild headache. He underwent an initial computed tomography scan of the brain which revealed evidence of a acute left parietal infarct. He was subsequently admitted to hospital for a complete stroke evaluation. He does have history of congenital heart disease as a young child and there was concern he may have possibility of cardiac cause for his stroke. Cardiology was consulted today and he was seen by Dr. Oswald. Patient is being scheduled for LEEANNE procedure tomorrow for further evaluation. Patient did undergo MRI of the brain today which reveals subacute ischemia involving the left parietal and left frontal lobe. There was no evidence of hemorrhagic transformation. We have discussed the results of his MRI today with the patient in detail. Patient was able to work with speech therapy today. They're recommending that he be based on thickened for liquids. He otherwise seems to be doing well with his swallow. We are waiting his LEEANNE procedure to be done tomorrow by cardiology. He likely does have history of underlying congenital heart disease which was treated with 2 heart surgeries at a very young age at [facility]. Once again we will await further recommendations from cardiology. He does have a history of smoking and was counseled today to consider a smoking cessation program as this will be helpful for him in the long-term. Further recommendations will be given pending his LEEANNE results. Patient underwent routine EEG today which was reviewed and is normal for his age. We did discuss these results today but the patient at bedside. We do recommend he continue on 1 aspirin daily for secondary stroke prevention. We will continue close neurological follow-up for the patient during this admission. Objective - Vital Signs Vital signs: Vital Signs Temp 97.1 F L 05/03/18 16:00 Pulse 50 L 05/03/18 16:00 Resp 18 05/03/18 16:00 BP 141/86 05/03/18 16:00 Pulse Ox 100 05/03/18 16:00 Intake & Output 05/02/18 05/03/18 05/03/18 18:59 06:59 18:59 Intake Total 1000 836 Output Total 900 Balance 1000 -64 Weight 68.039 kg 62 kg Intake: Intake, IV Titration 1000 Amount Sodium Chloride 0.9% 1, 1000 000 ml @ 100 mls/hr IV . Q10H [facility] Rx#:[id number] Oral 836 Output: Urine 900 Other: # Voids 1 - Exam Physical examination: PHYSICAL EXAMINATION: Patient is resting comfortably in bed. VITAL SIGNS: Blood pressure is [141/86]. Heart rate is [50]. Respiration is [18] . Temperature is [97.1]. HEENT: Head is atraumatic, neck is supple, there were no carotid bruits. CHEST: Lungs are clear to auscultation and percussion. CARDIAC: S1, S2 normal rate and rhythm. There is no murmur. ABDOMEN: Soft and nontender. Bowel sounds are present. EXTREMITIES: There is no pedal edema. Peripheral pulses are present. Neurological examination: Patient's neurological examination is unchanged from yesterday. Patient has evidence of expressive aphasia but it is showing some improvement from yesterday. He has no obvious right-sided weakness on examination today. - Labs CBC & Chem 7: 05/03/18 05:31 05/03/18 05:31 Labs: Abnormal Lab Results - Last 24 Hours (Table) 05/03/18 Range/Units 05:31 Chloride 112 H (98-107) mmol/L HDL Cholesterol 25 L (40-60) mg/dL Microbiology - Last 24 Hours (Table) 05/02/18 17:50 Urine Culture - Preliminary Urine,Voided Assessment and Plan (1) Left acute arterial ischemic stroke, MCA (middle cerebral artery) Current Visit: Yes Status: Acute Code(s): I63.512 - CEREB INFRC D/T UNSP OCCLS OR STENOS OF LEFT MID CEREB ART SNOMED Code(s): 494110383 (2) History of heart surgery Current Visit: Yes Status: Acute Code(s): Z98.890 - OTHER SPECIFIED POSTPROCEDURAL STATES SNOMED Code(s): 978960936 (3) Cryptogenic stroke Current Visit: Yes Status: Acute Code(s): I63.9 - CEREBRAL INFARCTION, UNSPECIFIED SNOMED Code(s): 757119396 (4) Aphasia Current Visit: Yes Status: Acute Code(s): R47.01 - APHASIA SNOMED Code(s) : 03207599 Plan: This patient is a 38-year-old male who has a history of congenital heart disease and underwent 2 heart surgeries at [facility] as a young child. He was admitted to hospital yesterday with symptoms of speech impairment. CAT scan of the brain revealed evidence of an acute left parietal lobe infarct and stroke. He underwent MRI of the brain today results of which are noted above. MRI reveals evidence of subacute ischemia involving the left parietal lobe and left frontal lobe. No evidence of acute hemorrhage. Patient was seen by cardiology today and Dr. Oswald is recommending LEEANNE procedure to be done tomorrow. Patient is to continue on aspirin daily for secondary stroke prevention. He was evaluated by speech therapy today and we have noted their recommendations. Patient underwent routine EEG today which was reviewed and is normal for his age. We will continue close neurological follow-up with the patient. We will await further recommendations from cardiology in regards to the results of the LEEANNE procedure scheduled for tomorrow. His overall prognosis at this time remains guarded.
[2018-05-03] MEDS: MELATONIN 3 MG TABLET PO SCH (20:09)
[2018-05-03] MEDS: ATORVASTATIN 20 MG TAB PO SCH (20:09)
--- NOTE | 2018-05-03 21:50 | EEG ---
ELECTROENCEPHALOGRAM REPORT DATE OF EE05/03/2018. REFERRING PHYSICIAN: Dr. Lombardi. CONSULTING/INTERPRETING PHYSICIAN: Dr. Luis Bhatt MD ELECTROENCEPHALOGRAPHIC EXAMINATION REPORT: INDICATION FOR EXAMINATION: This patient is a 38-year-old male being evaluated for cryptogenic stroke. The patient presents with mild aphasia and confusion. AGE: [age]. EEG FINDINGS: A routine 21 channel awake digital EEG recording was accomplished utilizing the 10-20 international system with bipolar and referential montages. The background activity in the most alert resting state consists of a low to medium amplitude, fairly well developed and well sustained 7-8 Hz activity over the posterior head regions. This posterior rhythm attenuates to eye opening. There is a small amount of low amplitude 18-20 Hz beta activity seen maximally over the anterior head regions. Muscle and movement artifact was observed on a few occasions during the tracing. Hyperventilation was not performed. Photic stimulation at flash frequencies of 2-30 Hz produced a good symmetrical occipital driving response. No epileptiform discharges were seen. IMPRESSION: This EEG is within normal limits for the patient's age. The EEG failed to reveal any focal, lateralized, or epileptiform abnormalities. Clinical correlation is recommended. MMODL / IJN: [id number] /
[2018-05-04 04:20] VITALS: TEMP 97.8
[2018-05-04] MEDS: SODIUM CHLORIDE 0.9% 1,000 ML IV SCH (05:30)
[2018-05-04 06:08] LABS: Basophils % (A) 0 %; Eosinophils # (A) 0.1 k/uL (0-0.7); Eosinophils % (A) 2 %; HCT 38.4 % (39.0-53.0); HGB 12.8 gm/dL (13.0-17.5); Lymphocytes # (A) 1.8 k/uL (1.0-4.8); Lymphocytes % (A) 35 %; MCH 31.3 pg (25.0-35.0); MCHC 33.4 g/dL (31.0-37.0); MCV 93.8 fL (80.0-100.0); Mean Platelet Volume 8.4; Monocytes # (A) 0.4 k/uL (0-1.0); Monocytes % (A) 7 %; Neutrophils # (A) 2.8 k/uL (1.3-7.7); Neutrophils % (A) 55 %; Platelet Count 152 k/uL (150-450); RBC 4.09 m/uL (4.30-5.90); RDW 14.2 % (11.5-15.5); WBC 5.2 k/uL (3.8-10.6)
[2018-05-04] MEDS: PANTOPRAZOLE 40 MG TABLET PO SCH (06:14)
[2018-05-04 06:18] LABS: Anion Gap 5 mmol/L; Blood Urea Nitrogen 13 mg/dL (9-20); Calcium 8.7 mg/dL (8.4-10.2); Carbon Dioxide 26 mmol/L (22-30); Chloride 110 mmol/L (98-107); Glucose 95 mg/dL (74-99); Potassium 4.9 mmol/L (3.5-5.1); Sodium 141 mmol/L (137-145)
[2018-05-04] MEDS: NICOTINE 14MG/24HR PATCH TRANSDERM SCH (08:11)
[2018-05-04] MEDS: HEPARIN SODIUM,PORCINE 5,000 UNIT/ML 1 ML VIAL SQ SCH (08:11)
--- NOTE | 2018-05-04 08:52 | P.PN ---
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 The patient was in his usual state of health until this past Wednesday when he was at home eating his dinner and he noticed right arm was not responding well and was weak. At that point the patient did not seek any medical attention and the following day he slept for the whole day. On Wednesday he developed headache as well as some slurred speech and difficult to find the griffin and what it seems to be expressive aphagia. At that point he decided to come to the emergency room. The patient was seen and evaluated by the neurology service and he underwent a computed tomography scan an MRI of the brain which seems to show possible subacute infarct in the distribution of the right middle cerebral artery. We requested to see the patient for further evaluation off transesophageal echocardiogram and rule out any cardiac source of embolization. The patient does not follow up with any stereotype caster since his open heart surgery as a child. He denies having any chest pain or discomfort, shortness of breath, dizziness or lightheadedness, or syncope. No fever and no chills. Unfortunately he is a smoker.the EKG showed sinus rhythm with nonspecific changes. He underwent an echocardiogram which revealed normal LV function with non-impacted RV and severe pulmonary hypertension exceeding 100 mmHg. The patient is hemodynamically stable at this point. On follow-up with him today, he didn't sleep well last night. He remains hemodynamics is stable except for asymptomatic bradycardia. He is going to undergo a transesophageal echocardiogram later on today to rule out any cardiac source of embolization. Objective - Vital Signs Vital signs: Vital Signs Temp 97.8 F 05/04/18 04:00 Pulse 44 L 05/04/18 04:00 Resp 18 05/04/18 04:00 BP 132/62 05/04/18 04:00 Pulse Ox 99 05/04/18 04:00 Intake & Output 05/03/18 05/04/18 05/04/18 18:59 06:59 18:59 Intake Total 836 1600 Output Total 900 Balance -64 1600 Weight 62.8 kg Intake: Intake, IV Titration 1600 Amount Sodium Chloride 0.9% 1, 1600 000 ml @ 100 mls/hr IV . Q10H [facility] Rx#:[id number] Oral 836 Output: Urine 900 Other: Voiding Method Toilet # Voids 1 - Constitutional General appearance: Present: no acute distress - Respiratory Respiratory: bilateral: CTA - Cardiovascular Rhythm: regular Heart sounds: normal: S1, S2 - Labs CBC & Chem 7: 05/04/18 05:48 05/04/18 05:48 Labs: Abnormal Lab Results - Last 24 Hours (Table) 05/04/18 05/04/18 Range/Units 05:48 05:48 RBC 4.09 L (4.30-5.90) m/uL Hgb 12.8 L (13.0-17.5) gm/dL Hct 38.4 L (39.0-53.0) % Chloride 110 H (98-107) mmol/L Microbiology - Last 24 Hours (Table) 05/02/18 17:50 Urine Culture - Final Urine,Voided Assessment and Plan Assessment: Assessment #1 TIA/CVA #2 congenital heart disease as described above #3 significant history of smoking Plan #1 the patient will be scheduled to undergo a LEEANNE tomorrow #2 we'll continue following up with him. Thank you for allowing participate in his care and we'll continue following up with the patient
[2018-05-04] MEDS ORDERED: MIDAZOLAM 2 MG/2 ML VIAL IV ONE ×2 (10:20→13:24)
[2018-05-04] MEDS ORDERED: fentaNYL (PF) 50 MCG/ML 2 ML AMP IVP ONE (10:20)
[2018-05-04] MEDS ORDERED: BENZOCAINE SPRAY 1 CAN TOPICAL PRN (10:20)
[2018-05-04] MEDS ORDERED: MIDAZOLAM 2 MG/2 ML VIAL ONE (12:46)
[2018-05-04] MEDS ORDERED: fentaNYL (PF) 50 MCG/ML 2 ML AMP ONE (12:46)
[2018-05-04] MEDS ORDERED: IV FLUID CONTINUATION 200 ML IV ONE (12:59)
[2018-05-04] MEDS: BENZOCAINE SPRAY 1 CAN MUCOUS MEM ONE ×2 (13:11→13:24)
[2018-05-04] MEDS: fentaNYL (PF) 50 MCG/ML 2 ML AMP IV ONE ×2 (13:24→13:27)
[2018-05-04] MEDS: MIDAZOLAM 2 MG/2 ML VIAL IV ONE ×2 (13:27→13:29)
[2018-05-04 13:39] VITALS: RESP 16
--- NOTE | 2018-05-04 14:36 | ECHOT ---
TRANSESOPHAGEAL ECHOCARDIOGRAM DATE OF SERVICE: May 04, 2018 PERFORMING PHYSICIAN: Tung Oswald MD, professor of mathematics. PROCEDURE PERFORMED: Transesophageal echocardiogram. INDICATION: This is a pleasant 38-year-old gentleman who was admitted to the hospital with symptoms of TIA/stroke. He presented to the hospital with right-sided weakness and slurred speech and he underwent a CT scan and MRI of the brain and that revealed possible embolic event with symptoms of subacute ischemia involving the left side of the brain involving the middle cerebral arteries in the mid MCA distribution. COMPLICATION: None. LEVEL OF SEDATION: Moderate with sedation length of 10 minutes. We used 4 mg of Versed and 50 mcg of fentanyl in divided doses. PROCEDURE DESCRIPTION: After obtaining an informed consent, explaining the procedure, benefits, risks, complications and alternatives, the patient was brought to the transesophageal echocardiogram suite. A pulse oximetry and heart rate monitors were attached to the patient prior to the procedure. The patient's throat was sprayed using lidocaine locally. Following that, the patient was turned into left lateral position. A bite guard was placed and the patient was then sedated with the above doses of Versed and fentanyl in divided doses. Following that, the transesophageal echocardiogram probe was advanced through the bite guard into the mid esophagus where 2-D echocardiogram images as well as color Doppler images of various cardiac structures were obtained. We evaluated the interatrial septum using 2-D echocardiogram, color Doppler, and contrast study. The procedure was completed. There were no complications. FINDINGS: The left ventricular dimension and systolic function appeared to be within normal limits. The ejection fraction appeared to be in the range of 50% to 55%. The right ventricle is severely dilated. The right atrium appeared to be also severely dilated. The mitral valve seems to be prolongated valve with evidence of mild mitral and regurgitation. The aortic valve was not well visualized, but I could not tell if the aortic valve is trileaflet valve or no, but there is mild aortic insufficiency seen. There was moderate tricuspid regurgitation seen and the pulmonary artery systolic pressure by surface echo was more than 100 mmHg. The interatrial septum was not well visualized probably because of the patient's previous open heart surgery as a child where he underwent Mustard procedure. We did a bubble study on him and I could not see a clear-cut [id number] shunt. CONCLUSION: 1. Technically difficult study. 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 2. Normal left ventricular dimension and systolic function. 3. Severely dilated right ventricle. 4. Markel mitral valve leaflets with mild mitral regurgitation. 5. Poorly visualized aortic valve with mild aortic insufficiency. 6. Moderate to severe tricuspid regurgitation. 7. Poorly visualized interatrial septum without any evidence of clear-cut shunt. POSTPROCEDURE MANAGEMENT: I did recommend that the patient be transferred into a tertiary center where they can deal with congenital heart disease. MMODL / IJN: [id number] /
[2018-05-04] MEDS: ASPIRIN 81 MG PO SCH (15:29)
[2018-05-04 16:50] VITALS: BP 134/77; PULSE 43
--- NOTE | 2018-05-04 18:39 | DS ---
DISCHARGE SUMMARY FINAL DIAGNOSES: 1. Acute stroke involving the right side, possible left MCA artery infarction, possible cerebral embolism. 2. History of THC. 3. History of nicotine dependence. 4. History of MRSA. 5. History of complex cardiac valve surgery while in infancy. DISCHARGE DISPOSITION: The patient is being discharged in stable condition with guarded prognosis. HISTORY OF PRESENT ILLNESS: This 38-year-old gentleman with past medical history of multiple medical problems was admitted with features of right-sided stroke, possibly MCA territory lesion. Possible embolism was concerned, but however, a LEEANNE showed no evidence of any PFO or shunt or other lesions at this time. I discussed the case at length with Dr. Oswald and he was impressed by the RV size and as well as possible pulmonary artery hypertension which could be a remnant of the unknown surgery which was performed in infancy. Please note the patient never had any followup of these symptoms. At this point, I discussed the case with Dr. Oswald and if okay with Neurology, the patient could be discharged home and with further plans to follow up in the outpatient setting, especially with [facility]. This was discussed at length with the family and the patient and the patient, understands and agrees. Anticoagulants withheld because of the above-mentioned reasons and also the size of the infarction. On exam vitals are stable. Cardiovascular: S1, S2 muffled. Abdomen soft. NERVOUS SYSTEM: No focal deficits. The patient is being discharged in stable condition. DISCHARGE ADVICE AND MEDICATIONS: 1. Diet is cardiac diet. 2. Activity limited until followup. 3. Follow up with Dr. Tristan in 2-3 days. 4. Follow up with [facility]. 5. Followup with Dr. Sterling Bhatt and Cardiology as recommended. MEDICATIONS: 1. Aspirin 81 mg p.o. daily. 2. Lipitor 20 mg p.o. q.h.s. 3. Habitrol 14 daily No smoking. Activity limited until follow up. Once again the patient is being discharged in stable condition with guarded prognosis. MMODL / IJN: [id number] /
--- NOTE | 2018-05-04 20:27 | P.PN ---
Subjective Progress Note Date: 05/04/18 This patient is a 38-year-old male who was seen yesterday on neurology consultation for acute stroke findings. Patient presented to the emergency room yesterday with symptoms of speech impairment and mild headache. He underwent an initial computed tomography scan of the brain which revealed evidence of a acute left parietal infarct. He was subsequently admitted to hospital for a complete stroke evaluation. He does have history of congenital heart disease as a young child and there was concern he may have possibility of cardiac cause for his stroke. Cardiology was consulted today and he was seen by Dr. Oswald. Patient is being scheduled for LEEANNE procedure tomorrow for further evaluation. Patient did undergo MRI of the brain today which reveals subacute ischemia involving the left parietal and left frontal lobe. There was no evidence of hemorrhagic transformation. We have discussed the results of his MRI today with the patient in detail. Patient was able to work with speech therapy today. They are recommending that he be placed on thickened for liquids. He otherwise seems to be doing well with his swallow. We are waiting his LEEANNE procedure to be done today by cardiology. He likely does have history of underlying congenital heart disease which was treated with 2 heart surgeries at a very young age at [facility]. Once again we will await further recommendations from cardiology. He does have a history of smoking and was counseled today to consider a smoking cessation program as this will be helpful for him in the long-term. Further recommendations will be given pending his LEEANNE results. Patient underwent routine EEG yesterday which was reviewed and is normal for his age. We did discuss these results today but the patient at bedside. We do recommend he continue on 1 aspirin daily for secondary stroke prevention. The patient underwent LEEANNE procedure today which was performed by Dr. Oswald. This was a technically difficult study. There was a severely dilated right ventricle. Moderate to severe tricuspid regurgitation was noted as well. Poorly visualized intra-atrial septum without evidence of a clear-cut shunt. Cardiology is recommending the patient to be evaluated at the [facility] cardiology department for further evaluation and recommendation. We reviewed the results of the LEEANNE today with the patient. He is to continue on 1 aspirin daily until he is seen by the inventory control specialist at the [facility]. We will continue close neurological follow-up for the patient during this admission. Objective - Vital Signs Vital signs: Vital Signs Temp 97.8 F 05/04/18 04:00 Pulse 50 L 07/18/18 13:38 Resp 16 05/04/18 13:38 BP 129/79 05/04/18 13:38 Pulse Ox 97 05/04/18 13:38 Intake & Output 05/03/18 05/04/18 05/04/18 18:59 06:59 18:59 Intake Total 836 1600 150 Output Total 900 Balance -64 1600 150 Weight 62.8 kg Intake: IV 150 Intake, IV Titration 1600 Amount Sodium Chloride 0.9% 1, 1600 000 ml @ 100 mls/hr IV . Q10H [facility] Rx#:[id number] Oral 836 Output: Urine 900 Other: Voiding Method Toilet # Voids 1 - Exam Physical examination: PHYSICAL EXAMINATION: Patient is resting comfortably in bed. VITAL SIGNS: Blood pressure is [129/79]. Heart rate is [50]. Respiration is [16] . Temperature is [97.8]. HEENT: Head is atraumatic, neck is supple, there were no carotid bruits. CHEST: Lungs are clear to auscultation and percussion. CARDIAC: S1, S2 normal rate and rhythm. There is no murmur. ABDOMEN: Soft and nontender. Bowel sounds are present. EXTREMITIES: There is no pedal edema. Peripheral pulses are present. Neurological examination: Patient's neurological examination is unchanged from yesterday. Patient has evidence of expressive aphasia but it is showing some improvement from yesterday. He has no obvious right-sided weakness on examination today. - Labs CBC & Chem 7: 05/04/18 05:48 05/04/18 05:48 Labs: Abnormal Lab Results - Last 24 Hours (Table) 05/04/18 05/04/18 Range/Units 05:48 05:48 RBC 4.09 L (4.30-5.90) m/uL Hgb 12.8 L (13.0-17.5) gm/dL Hct 38.4 L (39.0-53.0) % Chloride 110 H (98-107) mmol/L Microbiology - Last 24 Hours (Table) 05/02/18 17:50 Urine Culture - Final Urine,Voided Assessment and Plan (1) Left acute arterial ischemic stroke, MCA (middle cerebral artery) Current Visit: Yes Status: Acute Code(s): I63.512 - CEREB INFRC D/T UNSP OCCLS OR STENOS OF LEFT MID CEREB ART SNOMED Code(s): 211277580 (2) History of heart surgery Current Visit: Yes Status: Acute Code(s): Z98.890 - OTHER SPECIFIED POSTPROCEDURAL STATES SNOMED Code(s): 093031692 (3) Cryptogenic stroke Current Visit: Yes Status: Acute Code(s): I63.9 - CEREBRAL INFARCTION, UNSPECIFIED SNOMED Code(s): 410842103 (4) Aphasia Current Visit: Yes Status: Acute Code(s): R47.01 - APHASIA SNOMED Code(s) : 35585658 Plan: This patient is a 38-year-old male who was admitted to hospital with speech impairment and expressive aphasia. He underwent a initial CAT scan of the brain which revealed evidence of an acute left temporal lobe infarct. Yesterday he was able to complete MRI of the brain which revealed evidence of a left temporal and left frontal lobe infarct. Given his young age she was recommended to undergo a LEEANNE procedure for further evaluation. He also has a history of known congenital heart disease that was treated as a young child. He was seen by Dr. Recio yesterday and underwent a LEEANNE procedure today. Results of the LEEANNE are as noted above. It is been recommended the patient should follow up in the cardiology clinic at the [facility] regarding his history of congenital heart disease. We have recommended that he should be maintained on aspirin daily for secondary stroke prevention and will await further recommendations from the rn hemodialysis charge at the [facility]. The patient otherwise seems to be making good progress. He has had slight improvement with his speech. We will continue close neurological follow-up for the patient during this admission. His overall prognosis at this time remains guarded.
== END 2018-05-04 18:54 | disposition home or self-care (01) | DRG 66 ==
LOC: EC 14:01 → 6SEL 16:52
PROVIDERS: ADMIT Hospitalist; ATTEND Hospitalist
PROC: B24BZZ4 Ultrasonography of Heart with Aorta, Transesophageal (ICD-10-PCS; principal; 2018-05-04 12:59)
DX: I63.412 Cerebral infarction due to embolism of left middle cerebral artery (principal); R47.01 Aphasia; G83.21 Monoplegia of upper limb affecting right dominant side; R29.701 NIHSS score 1; R51 Headache; I27.20 Pulmonary hypertension, unspecified; I07.1 Rheumatic tricuspid insufficiency; F17.200 Nicotine dependence, unspecified, uncomplicated; I51.7 Cardiomegaly; Z95.2 Presence of prosthetic heart valve; Z86.14 Personal history of Methicillin resistant Staphylococcus aureus infection; Z71.6 Tobacco abuse counseling; Z80.3 Family history of malignant neoplasm of breast
CPT/HCPCS: 36415; 70450; 70496; 70498; 70551; 80048; 80053; 80061; 80306; 81003; 81241; 82550; 82553; 84484; 85025; 85302; 85305; 85610; 85730; 86147; 87086; 93005; 93306; 93312; 93320; 93325; 95816; 96360; 99285

== ENCOUNTER 2019-10-24 09:35 | Observation (INO) | payer OTHER ==
--- NOTE | 2019-10-24 10:43 | XR ---
EXAMINATION TYPE: XR chest 2V DATE OF EXAM: 10/24/2019 COMPARISON: 06/28/2010 TECHNIQUE: PA and lateral views submitted. HISTORY: Chest pain FINDINGS: The lungs are clear and there is no pneumothorax, pleural effusion, or focal pneumonia. Postoperati ve change. No overt failure or pleural effusion. IMPRESSION: 1. No acute process.
[2019-10-24 10:47] LABS: Basophils % (A) 1 %; Eosinophils # (A) 0.2 k/uL (0-0.7); Eosinophils % (A) 4 %; HCT 41.8 % (39.0-53.0); HGB 14.5 gm/dL (13.0-17.5); Lymphocytes # (A) 1.9 k/uL (1.0-4.8); Lymphocytes % (A) 43 %; MCH 31.7 pg (25.0-35.0); MCHC 34.7 g/dL (31.0-37.0); MCV 91.2 fL (80.0-100.0); Mean Platelet Volume 8.4; Monocytes # (A) 0.3 k/uL (0-1.0); Monocytes % (A) 7 %; Neutrophils # (A) 1.9 k/uL (1.3-7.7); Neutrophils % (A) 44 %; Platelet Count 209 k/uL (150-450); RBC 4.58 m/uL (4.30-5.90); RDW 12.7 % (11.5-15.5); WBC 4.4 k/uL (3.8-10.6)
[2019-10-24 11:03] LABS: ALT 10 U/L (4-49); AST 21 U/L (17-59); African American GFR (CKD) >90 (>60 ml/min/1.73 sqM); Alkaline Phosphatase 89 U/L (38-126); Anion Gap 8 mmol/L; Blood Urea Nitrogen 12 mg/dL (9-20); Calcium 9.3 mg/dL (8.4-10.2); Carbon Dioxide 23 mmol/L (22-30); Chloride 110 mmol/L (98-107); Glucose 90 mg/dL (74-99); Non-African American GFR(CKD) >90 (>60 ml/min/1.73 sqM); Potassium 4.6 mmol/L (3.5-5.1); Sodium 141 mmol/L (137-145); Total Bilirubin 0.8 mg/dL (0.2-1.3); Total Protein 7.2 g/dL (6.3-8.2)
[2019-10-24 11:11] LABS: Partial Thromboplastin Time 24.3 sec (22.0-30.0); Prothrombin Time 10.7 sec (9.0-12.0)
[2019-10-24] MEDS ORDERED: ASPIRIN 325 MG TAB PO STA (11:44)
[2019-10-24] MEDS ORDERED: NALOXONE 0.4 MG/ML 1 ML VIAL IV PRN (11:51)
[2019-10-24] MEDS ORDERED: MORPHINE SULFATE 4 MG/ML SYRINGE IV PRN (11:51)
[2019-10-24] MEDS ORDERED: ACETAMINOPHEN TAB 325 MG TAB PO PRN (11:51)
--- NOTE | 2019-10-24 11:57 | ED ---
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 Patient's reports 3 days of constant left-sided chest pain. Described as a dull aching pain. Denies radiating symptoms. He has had some mild dyspnea associated with this. Denies abdominal pain. Denies fever or chills. He does also report cough and mild URI symptoms. He is not currently following with cardiology. He is uncertain of when his last echo was obtained. Denies lower extremity swelling. Denies calf tenderness. - Related Data Previous Rx's Medication Instructions Recorded Aspirin 81 mg PO DAILY #30 chew 05/04/18 Atorvastatin [Lipitor] 20 mg PO HS #30 tab 05/04/18 Nicotine 14Mg/24Hr Patch [Habitrol] 1 patch TRANSDERM DAILY #30 patch 05/04/18 Allergies Allergy/AdvReac Type Severity Reaction Status Date / Time No Known Allergies Allergy Verified 10/24/19 09:40 Review of Systems ROS Statement: Those systems with pertinent positive or pertinent negative responses have been documented in the HPI. ROS Other: All systems not noted in ROS Statement are negative. Past Medical History Past Medical History: CVA/TIA Additional Past Medical History / Comment(s): Right ventricular dysfunction, non-rheumatic tricuspid valve insufficiency, palpitations History of Any Multi-Drug Resistant Organisms: MRSA Date of last positivie culture/infection: 2007 MDRO Source:: buttocks Past Surgical History: No Surgical Hx Reported Additional Past Surgical History / Comment(s): valve replacement as a (mustard surgery,) transposition of the great arteries Past Anesthesia/Blood Transfusion Reactions: No Reported Reaction Past Psychological History: No Psychological Hx Reported Smoking Status: Current every day smoker Past Alcohol Use History: None Reported Past Drug Use History: Marijuana - Past Family History Father History Unknown: Yes Mother Family Medical History: Cancer Additional Family Medical History / Comment(s): mom and grandmother both had breast cancer General Exam Limitations: no limitations General appearance: alert, in no apparent distress Head exam: Present: atraumatic, normocephalic Eye exam: Present: normal appearance, PERRL ENT exam: Present: normal exam Neck exam: Present: normal inspection. Absent: tenderness, meningismus Respiratory exam: Present: normal lung sounds bilaterally. Absent: respiratory distress, wheezes Cardiovascular Exam: Present: regular rate, normal rhythm, systolic murmur GI/Abdominal exam: Present: soft. Absent: distended, tenderness, guarding Extremities exam: Present: normal inspection, normal capillary refill. Absent: pedal edema, calf tenderness Back exam: Present: normal inspection Neurological exam: Present: alert, oriented X3, CN II-XII intact. Absent: motor sensory deficit Psychiatric exam: Present: normal affect, normal mood Skin exam: Present: warm, dry, intact. Absent: cyanosis, diaphoretic Course Vital Signs 10/24/19 10/24/19 09:40 11:44 Temperature 97.5 F L Pulse Rate 75 53 L Respiratory 18 16 Rate Blood Pressure 135/85 119/73 O2 Sat by Pulse 100 99 Oximetry EKG Findings - EKG Comments: EKG Findings:: EKG: Normal sinus rhythm, right axis deviation, pulmonary disease pattern, incomplete right bundle-branch block with right ventricular hypertrophy and nonspecific ST segment depression and T-wave inversion in the precordial leads. Rate is 69, SC interval 182, QRS duration 98, QTC 426, no ST segment elevation. Similar appearing EKG compared to previous in April 2018 Medical Decision Making - Medical Decision Making 39-year-old male with congenital heart disease, transposition of great vessels, presenting for evaluation of 3 days of left-sided chest pain. EKG has significant abnormalities however these appear stable compared to EKG in April 2018. No ST segment elevation. He has a chest x-ray which is negative for acute cardio pulmonary disease, no pneumothorax, no focal pneumonia. Patient has a normal CBC, normal CMP, negative initial troponin. Patient is uncertain when his last echo was, he does not currently follow with cardiology. I have concern about this patient's ability to follow up as an outpatient. He will be kept in observation for serial cardiac enzymes, telemetry, echo, and cardiology consultation. Case is discussed with the admitting physician Dr. Xie - Lab Data Result diagrams: 10/24/19 10:10 10/24/19 10:10 Lab Results 01/07/20 01/07/20 01/07/20 Range/Units 10:10 10:10 10:10 WBC 4.4 (3.8-10.6) k/uL RBC 4.58 (4.30-5.90) m/uL Hgb 14.5 (13.0-17.5) gm/dL Hct 41.8 (39.0-53.0) % MCV 91.2 (80.0-100.0) fL MCH 31.7 (25.0-35.0) pg MCHC 34.7 (31.0-37.0) g/dL RDW 12.7 (11.5-15.5) % Plt Count 209 (150-450) k/uL Neutrophils % 44 % Lymphocytes % 43 % Monocytes % 7 % Eosinophils % 4 % Basophils % 1 % Neutrophils # 1.9 (1.3-7.7) k/uL Lymphocytes # 1.9 (1.0-4.8) k/uL Monocytes # 0.3 (0-1.0) k/uL Eosinophils # 0.2 (0-0.7) k/uL Basophils # 0.0 (0-0.2) k/uL PT 10.7 (9.0-12.0) sec INR 1.0 (<1.2) APTT 24.3 (22.0-30.0) sec Sodium 141 (137-145) mmol/L Potassium 4.6 (3.5-5.1) mmol/L Chloride 110 H (98-107) mmol/L Carbon Dioxide 23 (22-30) mmol/L Anion Gap 8 mmol/L BUN 12 (9-20) mg/dL Creatinine 0.93 (0.66-1.25) mg/dL Est GFR (CKD-EPI)AfAm >90 (>60 ml/min/1.73 sqM) Est GFR (CKD-EPI)NonAf >90 (>60 ml/min/1.73 sqM) Glucose 90 (74-99) mg/dL Calcium 9.3 (8.4-10.2) mg/dL Magnesium 2.0 (1.6-2.3) mg/dL Total Bilirubin 0.8 (0.2-1.3) mg/dL AST 21 (17-59) U/L ALT 10 (4-49) U/L Alkaline Phosphatase 89 (38-126) U/L Troponin I (0.000-0.034) ng/mL NT-Pro-B Natriuret Pep pg/mL Total Protein 7.2 (6.3-8.2) g/dL Albumin 4.0 (3.5-5.0) g/dL 10/24/19 10/24/19 Range/Units 10:10 10:10 WBC (3.8-10.6) k/uL RBC (4.30-5.90) m/uL Hgb (13.0-17.5) gm/dL Hct (39.0-53.0) % MCV (80.0-100.0) fL MCH (25.0-35.0) pg MCHC (31.0-37.0) g/dL RDW (11.5-15.5) % Plt Count (150-450) k/uL Neutrophils % % Lymphocytes % % Monocytes % % Eosinophils % % Basophils % % Neutrophils # (1.3-7.7) k/uL Lymphocytes # (1.0-4.8) k/uL Monocytes # (0-1.0) k/uL Eosinophils # (0-0.7) k/uL Basophils # (0-0.2) k/uL PT (9.0-12.0) sec INR (<1.2) APTT (22.0-30.0) sec Sodium (137-145) mmol/L Potassium (3.5-5.1) mmol/L Chloride (98-107) mmol/L Carbon Dioxide (22-30) mmol/L Anion Gap mmol/L BUN (9-20) mg/dL Creatinine (0.66-1.25) mg/dL Est GFR (CKD-EPI)AfAm (>60 ml/min/1.73 sqM) Est GFR (CKD-EPI)NonAf (>60 ml/min/1.73 sqM) Glucose (74-99) mg/dL Calcium (8.4-10.2) mg/dL Magnesium (1.6-2.3) mg/dL Total Bilirubin (0.2-1.3) mg/dL AST (17-59) U/L ALT (4-49) U/L Alkaline Phosphatase (38-126) U/L Troponin I <0.012 (0.000-0.034) ng/mL NT-Pro-B Natriuret Pep 518 pg/mL Total Protein (6.3-8.2) g/dL Albumin (3.5-5.0) g/dL Disposition Clinical Impression: Chest pain Disposition: ADMITTED IP TO THIS HOSP Condition: Stable Is patient prescribed a controlled substance at d/c from ED?: No Referrals: None,Stated [Primary Care Provider] - 1-2 days Decision to Admit Reason: Admit from EC Decision Date: 10/24/19 Decision Time: 11:57
--- NOTE | 2019-10-24 15:46 | P.HPIM ---
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 He notes the pain started 2 days ago, non-exertional, radiating into the L axilla, intermittent, tearing in nature, occuring ever 2-3 hours, lasting up to 10-20 seconds at a time, 7/10 in intensity, with associated shortness of breath and some palpitations. He notes never having such pain in the past. He denied noticing any alleviating or exacerbating features. He denied any additional complaints. Denied fever, cough, nausea, vomiting, dizziness, diaphoresis, leg pain, recent travel, or LE swelling. He does not follow with a latex caster. Patient underwent an extensive evaluation in the ED w/ EKG showing NSR @ 69 bpm with RBBB and diffuse T-wave inversions. CXR reveled no acute process. Laboratory evaluation revealed a sodium of 141, potassium 4.6, chloride 110, CO2 23, BUN 12, creatinine 0.93, troponin less than 0.012, and a BNP of 518. WBC count was 4.4, hemoglobin 14.5, and platelets 209. Patient is being admitted for evaluation by cardiology. Review of Systems Pertinent positives and negatives as discussed in HPI, a complete review of sys tems was performed and all other systems are negative. Past Medical History Past Medical History: CVA/TIA Additional Past Medical History / Comment(s): Right ventricular dysfunction, non-rheumatic tricuspid valve insufficiency, palpitations History of Any Multi-Drug Resistant Organisms: MRSA Date of last positivie culture/infection: 2007 MDRO Source:: buttocks Past Surgical History: No Surgical Hx Reported Additional Past Surgical History / Comment(s): valve replacement as a (mustard surgery,) transposition of the great arteries Past Anesthesia/Blood Transfusion Reactions: No Reported Reaction Past Psychological History: No Psychological Hx Reported Smoking Status: Current every day smoker Past Alcohol Use History: None Reported Past Drug Use History: Marijuana - Past Family History Father History Unknown: Yes Mother Family Medical History: Cancer Additional Family Medical History / Comment(s): mom and grandmother both had breast cancer Medications and Allergies Home Medications Medication Instructions Recorded Confirmed Type No Known Home Medications 10/24/19 10/24/19 History Allergies Allergy/AdvReac Type Severity Reaction Status Date / Time No Known Allergies Allergy Verified 10/24/19 12:01 Physical Exam Vitals: Vital Signs Temp Pulse Resp BP Pulse Ox 10/24/19 15:00 60 134/78 100 10/24/19 13:32 64 16 100 10/24/19 11:44 53 L 16 119/73 99 10/24/19 09:40 97.5 F L 75 18 135/85 100 Intake and Output 10/24/19 10/24/19 10/24/19 06:59 14:59 22:59 Other: Weight 68.039 kg General: non toxic, no distress, appears at stated age, normal weight Derm: no unusual rashes/lesions no unusual ecchymoses, warm, dry Head: atraumatic, normocephalic, symmetric Eyes: EOMI, no lid lag, anicteric sclera, pupils equal round reactive to light ENT: Nose and ears atraumatic, no thrush, no pharyngeal erythema Neck: No thyromegaly, no cervical lymphadenopathy, trachea midline, supple Mouth: no lip lesion, mucus membranes moist Cardiovascular: S1S2 reg, no murmur, positive posterior tibial pulse bilateral, no edema, capillary refill less than 2 seconds, no chest wall tenderness on palpation Lungs: CTA bilateral, no rhonchi, no rales , no accessory muscle use Abdominal: soft, nontender to palpation, no guarding, no appreciable organomegaly, normal bowel sounds Ext: no gross muscle atrophy, muscle strength 5 out of 5 in all 4 extremities grossly, no contractures, Neuro: CN II-XI grossly intact, light touch intact all 4 extremities, finger to nose within normal limits, Psych: Alert, oriented, appropriate affect Results CBC & Chem 7: 10/24/19 10:10 10/24/19 10:10 Labs: Abnormal Lab Results - Last 24 Hours (Table) 10/24/19 Range/Units 10:10 Chloride 110 H (98-107) mmol/L Assessment and Plan Plan: Left-sided chest pain, rule out ACS -Cardiology consulted -Trend troponin -Echocardiogram -Cardiac monitoring -Continue with aspirin Tobacco abuse -Advised the patient on importance of cessation -Nicotine patch as needed DVT prophylaxis -IPCDs The patient is admitted with an anticipated less than 2 midnight stay for evaluation of chest pain CODE STATUS: Full Code Discussed with: Patient Anticipated discharge date: 1-[address]: Home A total of 35 minutes was spent on the care of this complex patient more than 50% of the time was spent in counseling and care coordination.
[2019-10-24 15:50] VITALS: RESP 18
[2019-10-25] MEDS ORDERED: ASPIRIN 325 MG TAB PO SCH (09:00)
--- NOTE | 2019-10-25 10:11 | P.CRDCN ---
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 He follows in the office with a guncotton packer out of the [facility]. We have been asked to see in consultation for chest pain. He states for the previous 2 days he has been ex periencing intermittent discomfort in the left precordial region. He describes this pain as a ripping sensation. He states this discomfort occurs with deep inspiration or coughing. He is also been experiencing fever and chills and night sweats at home. He denies PND or orthopnea. 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 DIAGNOSTICS EKG reveals sinus mechanism with first-degree AV block, right axis deviation, incomplete right bundle branch block, right ventricular hypertrophy and diffuse T-wave inversions in the precordial leads. Consistent with previous EKGs. Chest xray negative for an acute cardiopulmonary process. Laboratory reviewed, CBC unremarkable, d-dimer 0.35, sodium 141, potassium 4.6, creatinine 0.93, magnesium 2.0, cardiac enzymes negative 3, NT proBNP 518. He takes no daily cardiac medications. REVIEW OF SYSTEMS At the time of my exam: CONSTITUTIONAL: Denies fever or chills. CARDIOVASCULAR: Denies chest pain, shortness of breath, orthopnea, PND or palpitations. RESPIRATORY: Complains of cough. GASTROINTESTINAL: Denies abdominal pain, diarrhea, constipation, nausea or vomiting. MUSCULOSKELETAL: Denies myalgias. NEUROLOGIC: Denies numbness, tingling or weakness. ENDOCRINE: Denies fatigue, weight change, polydipsia or polyurina. GENITOURINARY: Denies burning, hematuria or urgency with micturation. HEMATOLOGIC: Denies history of anemia or bleeding. PHYSICAL EXAMINATION Blood pressure 114/72 heart rate 56 afebrile and maintaining oxygen saturation on room air. CONSTITUTIONAL: No apparent distress. HEENT: Head is normocephalic. Pupils are equal, round. Sclerae anicteric. Mucous membranes of the mouth are moist. No JVD. No carotid bruit. CHEST EXAMINATION: Lungs are clear to auscultation. No chest wall tenderness is noted on palpation or with deep breathing. HEART EXAMINATION: Regular rate and rhythm. S1, S2 heard. Systolic ejection murmur, no gallops or rub. ABDOMEN: Soft, nontender. Positive bowel sounds. EXTREMITIES: 2+ peripheral pulses, no lower extremity edema and no calf tenderness. NEUROLOGIC EXAMINATION: Patient is awake, alert and oriented x3. ASSESSMENT Chest pain, atypical with pleuritic features. An acute event has been ruled out. Congential heart disease s/p Mustard procedure Valvular heart disease Pulmonary hypertension, severe Chronic nicotine dependence Marijuana use PLAN An acute event has been ruled out. Symptoms are atypical for angina. Echocardiogram has been obtained and will be reviewed. Recommend follow up with [facility] for any further cardiac work-up. Tobacco and marijuana use strongly discouraged. Thank you kindly for this consultation. Nurse Practitioner note has been reviewed, I agree with a documented findings and plan of care. Patient was seen and examined. Past Medical History Past Medical History: CVA/TIA Additional Past Medical History / Comment(s): Right ventricular dysfunction, non-rheumatic tricuspid valve insufficiency, palpitations History of Any Multi-Drug Resistant Organisms: MRSA Date of last positivie culture/infection: 2007 MDRO Source:: buttocks Past Surgical History: No Surgical Hx Reported Additional Past Surgical History / Comment(s): valve replacement as a infant (mustard surgery,) transposition of the great arteries Past Anesthesia/Blood Transfusion Reactions: No Reported Reaction Past Psychological History: No Psychological Hx Reported Smoking Status: Current every day smoker Past Alcohol Use History: None Reported Past Drug Use History: Marijuana - Past Family History Father History Unknown: Yes Mother Family Medical History: Cancer Additional Family Medical History / Comment(s): mom and grandmother both had breast cancer Medications and Allergies Home Medications Medication Instructions Recorded Confirmed Type No Known Home Medications 10/24/19 10/24/19 History Allergies Allergy/AdvReac Type Severity Reaction Status Date / Time No Known Allergies Allergy Verified 10/24/19 12:01 Physical Exam Vitals: Vital Signs Temp Pulse Pulse Pulse Resp BP BP 10/25/19 07:05 97.7 F 56 L 18 114/72 10/25/19 04:00 97.7 F 41 L 18 111/67 10/24/19 23:58 97.7 F 45 L 18 111/65 10/24/19 19:41 97.7 F 61 18 132/76 10/24/19 15:59 66 18 10/24/19 15:49 97.4 F L 66 18 125/78 10/24/19 15:00 60 134/78 10/24/19 13:32 64 16 10/24/19 11:44 53 L 16 119/73 10/24/19 09:40 97.5 F L 75 18 135/85 Pulse Ox 10/25/19 07:05 98 10/25/19 04:00 98 10/24/19 23:58 99 10/24/19 19:41 99 10/24/19 15:59 10/24/19 15:49 99 10/24/19 15:00 100 10/24/19 13:32 100 10/24/19 11:44 99 10/24/19 09:40 100 Intake and Output 10/24/19 10/25/19 10/25/19 22:59 06:59 14:59 Other: Voiding Method Toilet Toilet # Voids 1 1 Weight 68.039 kg Results 10/24/19 10:10 10/24/19 10:10 Cardiac Enzymes 10/24/19 10/24/19 10/24/19 Range/Units 10:10 10:10 16:21 AST 21 (17-59) U/L Troponin I <0.012 <0.012 (0.000-0.034) ng/mL 10/24/19 Range/Units 22:21 AST (17-59) U/L Troponin I <0.012 (0.000-0.034) ng/mL Coagulation 10/24/19 Range/Units 10:10 PT 10.7 (9.0-12.0) sec APTT 24.3 (22.0-30.0) sec CBC 10/24/19 Range/Units 10:10 WBC 4.4 (3.8-10.6) k/uL RBC 4.58 (4.30-5.90) m/uL Hgb 14.5 (13.0-17.5) gm/dL Hct 41.8 (39.0-53.0) % Plt Count 209 (150-450) k/uL Comprehensive Metabolic Panel 10/24/19 Range/Units 10:10 Sodium 141 (137-145) mmol/L Potassium 4.6 (3.5-5.1) mmol/L Chloride 110 H (98-107) mmol/L Carbon Dioxide 23 (22-30) mmol/L BUN 12 (9-20) mg/dL Creatinine 0.93 (0.66-1.25) mg/dL Glucose 90 (74-99) mg/dL Calcium 9.3 (8.4-10.2) mg/dL AST 21 (17-59) U/L ALT 10 (4-49) U/L Alkaline Phosphatase 89 (38-126) U/L Total Protein 7.2 (6.3-8.2) g/dL Albumin 4.0 (3.5-5.0) g/dL Current Medications Generic Name Dose Route Start Last Admin Trade Name Freq PRN Reason Stop Dose Admin Acetaminophen 650 mg 10/24/19 11:51 Tylenol Tab PO Q6HR PRN Mild Pain or Fever > 100.5 Aspirin 325 mg 10/25/19 09:00 Aspirin PO DAILY [facility] Morphine Sulfate 4 mg 10/24/19 11:51 Morphine Sulfate (Inj) IV Q4HR PRN Severe Pain Naloxone HCl 0.2 mg 10/24/19 11:51 Narcan IV Q2M PRN Opioid Reversal Intake and Output 10/24/19 10/25/19 10/25/19 22:59 06:59 14:59 Other: Voiding Method Toilet Toilet # Voids 1 1 Weight 68.039 kg 10/24/19 10:10 10/24/19 10:10
[2019-10-25 11:24] VITALS: BP 114/65; TEMP 98
[2019-10-25 11:29] VITALS: BMI 20.9
[2019-10-25 11:56] VITALS: PULSE 66
--- NOTE | 2019-10-25 12:36 | ECHOF ---
Referral Reason:CP MEASUREMENTS -------- HEIGHT: 180.3 cm WEIGHT: 68.0 kg BP: 119/73 RVIDd: 4.2 cm (< 3.3) IVSd: 0.9 cm (0.6 - 1.1) LVIDd: 2.5 cm (3.9 - 5.3) LVPWd: 1.1 cm (0.6 - 1.1) IVSs: 1.2 cm LVIDs: 1.3 cm LVPWs: 1.3 cm RAP: 5.00 mmHg RVSP: 101.41 mmHg FINDINGS -------- Sinus rhythm. This was a technically difficult study with suboptimal views. The left ventricular size is normal. Left ventricular wall thickness is normal. There is normal g lobal left ventricular contractility. Overall left ventricular systolic function is low-normal with , an EF between 50 - 55 %. Septal wall motion is delayed and consistent with prior cardiac surgery. The right ventricle is severely enlarged. Paradoxical motion of the right ventricular septum is con sistent with right ventricular overload and/or elevated right ventricular end-diastolic pressure. T rabeculae seen in RV. The left atrium was not well visualized. The right atrium is moderately enlarged. The aortic valve was not well visualized. There is moderate to severe aortic valve sclerosis. Mild mitral annular calcification present. No mitral regurgitation. Severe tricuspid regurgitation present. There is severe pulmonary hypertension. The right ventric ular systolic pressure, as measured by Doppler, is 101.41mmHg. Trace/mild (physiologic) pulmonic regurgitation. The aortic root size is normal. IVC Not well visulized. There is no pericardial effusion. CONCLUSIONS -------- 1. Sinus rhythm. 2. This was a technically difficult study with suboptimal views. 3. The left ventricular size is normal. 4. Left ventricular wall thickness is normal. 5. There is normal global left ventricular contractility. 6. Overall left ventricular systolic function is low-normal with, an EF between 50 - 55 %. 7. Septal wall motion is delayed and consistent with prior cardiac surgery. 8. The right ventricle is severely enlarged. 9. Paradoxical motion of the right ventricular septum is consistent with right ventricular overload a nd/or elevated right ventricular end-diastolic pressure. 10. Trabeculae seen in RV. 11. The left atrium was not well visualized. 12. The right atrium is moderately enlarged. 13. The aortic valve was not well visualized. 14. There is moderate to severe aortic valve sclerosis. 15. Mild mitral annular calcification present. 16. No mitral regurgitation. 17. Severe tricuspid regurgitation present. 18. There is severe pulmonary hypertension. 19. The right ventricular systolic pressure, as measured by Doppler, is 101.41mmHg. 20. Trace/mild (physiologic) pulmonic regurgitation. 21. The aortic root size is normal. 22. IVC Not well visulized. 23. There is no pericardial effusion. SPECIAL EVENTS MANAGER: Tanisha Pradhan RDCS
--- NOTE | 2019-10-25 14:50 | P.DS ---
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 He notes the pain started 2 days ago, non-exertional, radiating into the L axilla, intermittent, tearing in nature, occuring ever 2-3 hours, lasting up to 10-20 seconds at a time, 7/10 in intensity, with associated shortness of breath and some palpitations. He notes never having such pain in the past. He denied noticing any alleviating or exacerbating features. He denied any additional complaints. Denied fever, cough, nausea, vomiting, dizziness, diaphoresis, leg pain, recent travel, or LE swelling. He does not follow with a foot orthopedist. Patient underwent an extensive evaluation in the ED w/ EKG showing NSR @ 69 bpm with RBBB and diffuse T-wave inversions. CXR reveled no acute process. Laboratory evaluation revealed a sodium of 141, potassium 4.6, chloride 110, CO2 23, BUN 12, creatinine 0.93, troponin less than 0.012, and a BNP of 518. WBC count was 4.4, hemoglobin 14.5, and platelets 209. The patient was admitted for further management. Troponins were negative x 3. Cardiology evaluated the patient and noted that an acute coronary event had been ruled out and that his symptoms were atypical for angina. The patient was advised by cardiology to follow-up with [facility] for any further cardiac workup. The echocardiogram was reviewed and revealed right ventricular overload with elevated right ventricular systolic pressures. The patient was seen and examined at the bedside prior to discharge. He reported feeling well and noted that his pain had entirely resolved and have not recurred since yesterday evening. He noted feeling as though he is back to his baseline. He denied chest pain, shortness of breath, nausea, vomiting, diaphoresis, or dizziness. The patient was advised that if his symptoms recur or if he develops new symptoms, that he should return to the ED. Physical Examination General: Non-toxic, in no acute distress, appears stated age, normal weight HEENT: NC/AT, anicteric sclerae, moist conjunctiva, no lid-lag, PERRLA Cardiovascular: S1/S2 wnl, systolic murmur, no rubs, or gallops Lungs: Clear to auscultation, normal respiratory effort, no accessory muscle use Abdominal: Soft, non-tender, non-distended, no guarding, rebound, or rigidity Skin: Warm, dry Extremities: No edema or contractures Psychiatric: Alert and oriented to person, place and time, appropriate affect Neuro: CN II-XII grossly intact, Strength 5/5 in all 4 extremities, Speech intact, Sensation to light touch grossly intact throughout Discharge diagnosis: Chest pain, Atypical; congenital heart disease status post Mustard procedure; severe pulmonary hypertension; tobacco and marijuana abuse A total of 30 minutes of time were spent preparing this complex discharge summary. Patient Condition at Discharge: Stable Plan - Discharge Summary Discharge Rx Participant: No New Discharge Prescriptions: No Action No Known Home Medications Discharge Medication List No Known Home Medications 10/24/19 [History] Follow up Appointment(s)/Referral(s): None,Stated [Primary Care Provider] - 1-2 days Activity/Diet/Wound Care/Special Instructions: please follow up with your foot orthopedist at [facility]. Discharge Disposition: HOME SELF-CARE
== END 2019-10-25 15:15 | disposition home or self-care (01) ==
LOC: EC 09:35 → 1SOBS 11:52
PROVIDERS: ADMIT Internal Medicine; ATTEND Internal Medicine
DX: R07.89 Other chest pain (principal); F12.90 Cannabis use, unspecified, uncomplicated; F17.200 Nicotine dependence, unspecified, uncomplicated; I36.1 Nonrheumatic tricuspid (valve) insufficiency; I27.20 Pulmonary hypertension, unspecified; I44.0 Atrioventricular block, first degree; I45.10 Unspecified right bundle-branch block; Z87.74 Personal history of (corrected) congenital malformations of heart and circulatory system; Z79.82 Long term (current) use of aspirin; Z80.3 Family history of malignant neoplasm of breast; Z86.73 Personal history of transient ischemic attack (TIA), and cerebral infarction without residual deficits; Z95.2 Presence of prosthetic heart valve; Z79.899 Other long term (current) drug therapy; Z86.14 Personal history of Methicillin resistant Staphylococcus aureus infection; Z71.6 Tobacco abuse counseling; Z71.51 Drug abuse counseling and surveillance of drug abuser; R61 Generalized hyperhidrosis
CPT/HCPCS: 93005; 99285; 36415; 93306; 85379; 83880; 80053; 83735; 84484; 85025; 85610; 85730; 71046; G0378 ×2

== ENCOUNTER 2023-04-21 14:26 | Inpatient (IN) | payer BC, OTHER ==
--- NOTE | 2023-04-21 14:54 | ED ---
Neuro HPI - General Source: family, RN notes reviewed Mode of arrival: ambulatory Limitations: no limitations - History of Present Illness Is the patient presenting with stroke symptoms?: Yes <Kirt Alva - Last Filed: 04/21/23 14:53> - History of Present Illness Location: speech Place: home Severity: moderate Improves With: none Worsens With: none Associated Symptoms: confusion Treatments Prior to Arrival: none <Efra Reid - Last Filed: 04/22/23 17:08> - General Chief Complaint: Neuro Symptoms/Deficit Stated Complaint: stroke Time Seen by Provider: 04/21/23 14:53 - History of Present Illness Initial Comments: This a 43-year-old male presents emergency department with and if he can't other for evaluation of possible stroke. Patient has had symptoms for 2 days. Patient is having difficulty formulating words, sentences. Significant other states that this is happened in the past or prior CVA. Patient does admit that he's had surgery as an for valve repair, transposition of the greater vessels. Patient denies any extremity symptoms no focal weakness no facial asymmetry cerebellar states that she noticed it 2 days ago but it seems to be waxing and waning at times and possibly getting worse. (Kirt Alva) This is a 43-year-old male DF for evaluation. Patient presents for difficulty with speaking. Patient cannot find his words is unable to communicate. Patient's noticed symptoms for 2 days of progressively worsening and much worse today. Patient does have history of prior CVA (Efra Reid) - Related Data Home Medications: Home Medications Medication Instructions Recorded Confirmed No Known Home Medications 10/24/19 04/21/23 Allergies/Adverse Reactions: Allergies Allergy/AdvReac Type Severity Reaction Status Date / Time No Known Allergies Allergy Verified 04/21/23 19:49 Review of Systems ROS Other: All systems not noted in ROS Statement are negative. <Kirt Alva - Last Filed: 04/21/23 14:53> ROS Other: All systems not noted in ROS Statement are negative. <Efra Reid - Last Filed: 04/22/23 17:08> ROS Statement: Those systems with pertinent positive or pertinent negative responses have been documented in the HPI. General Exam Limitations: no limitations <Kirt Alva - Last Filed: 04/21/23 14:53> General appearance: alert, in no apparent distress Head exam: Present: atraumatic, normocephalic, normal inspection Eye exam: Present: normal appearance, PERRL, EOMI. Absent: scleral icterus, conjunctival injection, periorbital swelling ENT exam: Present: normal exam, mucous membranes moist Neck exam: Present: normal inspection. Absent: tenderness, meningismus, lymphadenopathy Respiratory exam: Present: normal lung sounds bilaterally. Absent: respiratory distress, wheezes, rales, rhonchi, stridor Cardiovascular Exam: Present: regular rate, normal rhythm, normal heart sounds. Absent: systolic murmur, diastolic murmur, rubs, gallop, clicks GI/Abdominal exam: Present: soft, normal bowel sounds. Absent: distended, tenderness, guarding, rebound, rigid Extremities exam: Present: normal inspection, full ROM, normal capillary refill. Absent: tenderness, pedal edema, joint swelling, calf tenderness Back exam: Present: normal inspection Neurological exam: Present: alert, oriented X3, CN II-XII intact Psychiatric exam: Present: normal affect, normal mood Skin exam: Present: warm, dry, intact, normal color. Absent: rash <Efra Reid B - Last Filed: 04/22/23 17:08> - General Exam Comments Initial Comments: Visual Physical Exam Vital signs reviewed General: Well-appearing, nontoxic, no acute distress. Head: Normocephalic, atraumatic Eyes: PERRLA, EOMI ENT: Airway patent Chest: Nonlabored breathing Skin: No visual rash, normal skin tone Neuro: Alert and oriented 3 Musculoskeletal: No gross abnormalities (Kirt Alva) Stroke MDM - Lab Data Result diagrams: 04/22/23 07:27 04/22/23 07:27 - NIH Stroke Scale 1a. Level of Consciousness: (0) alert 1b. LOC Questions: (2) answers no questions correctly 1c. LOC Commands: (2) performs no tasks correctly 2. Best Gaze: (0) normal 3. Visual: (0) no visual loss 4. Facial Palsy: (0) normal symmetrical movement 5a. Motor Arm Left: (0) no drift 5b. Motor Arm Right: (0) no drift 6a. Motor Leg Left: (0) no drift 6b. Motor Leg Right: (0) no drift 7. Limb Ataxia: (0) absent 8. Sensory: (0) normal 9. Best Language: (2) severe aphasia 10. Dysarthria: (1) mild/moderate dysarthria 11. Extinction/Inattention: (0) no abnormality - Radiology Data Radiology results: report reviewed (CT angiogram of head and neck is negative for acute stenosis, patient does have acute to subacute CVA on CT scan), image reviewed - EKG Data -: EKG Interpreted by Ak <Efra Reid - Last Filed: 04/22/23 17:08> - Lab Data Lab Results 04/21/23 04/21/23 04/21/23 Range/Units 15:05 15:05 15:05 WBC 7.4 (3.8-10.6) k/uL RBC 5.07 (4.30-5.90) m/uL Hgb 15.5 (13.0-17.5) gm/dL Hct 46.5 (39.0-53.0) % MCV 91.7 (80.0-100.0) fL MCH 30.5 (25.0-35.0) pg MCHC 33.3 (31.0-37.0) g/dL RDW 13.4 (11.5-15.5) % Plt Count 186 (150-450) k/uL MPV 9.0 Neutrophils % 68 % Lymphocytes % 23 % Monocytes % 6 % Eosinophils % 3 % Basophils % 0 % Neutrophils # 5.0 (1.3-7.7) k/uL Lymphocytes # 1.7 (1.0-4.8) k/uL Monocytes # 0.4 (0-1.0) k/uL Eosinophils # 0.2 (0-0.7) k/uL Basophils # 0.0 (0-0.2) k/uL PT 10.8 (9.0-12.0) sec INR 1.0 (<1.2) APTT 23.1 (22.0-30.0) sec Sodium 136 L (137-145) mmol/L Potassium 4.4 (3.5-5.1) mmol/L Chloride 104 (98-107) mmol/L Carbon Dioxide 24 (22-30) mmol/L Anion Gap 8 mmol/L BUN 13 (9-20) mg/dL Creatinine 1.14 (0.66-1.25) mg/dL Est GFR (CKD-EPI)AfAm 90 (>60 ml/min/1.73 sqM) Est GFR (CKD-EPI)NonAf 78 (>60 ml/min/1.73 sqM) Glucose 116 H (74-99) mg/dL Calcium 9.2 (8.4-10.2) mg/dL Phosphorus 2.6 (2.5-4.5) mg/dL Magnesium 1.9 (1.6-2.3) mg/dL Total Bilirubin 0.7 (0.2-1.3) mg/dL AST 20 (17-59) U/L ALT 13 (4-49) U/L Alkaline Phosphatase 99 (38-126) U/L Creatine Kinase 51 L (55-170) U/L Troponin I (0.000-0.034) ng/mL Total Protein 7.7 (6.3-8.2) g/dL Albumin 4.3 (3.5-5.0) g/dL 04/21/23 Range/Units 15:05 WBC (3.8-10.6) k/uL RBC (4.30-5.90) m/uL Hgb (13.0-17.5) gm/dL Hct (39.0-53.0) % MCV (80.0-100.0) fL MCH (25.0-35.0) pg MCHC (31.0-37.0) g/dL RDW (11.5-15.5) % Plt Count (150-450) k/uL MPV Neutrophils % % Lymphocytes % % Monocytes % % Eosinophils % % Basophils % % Neutrophils # (1.3-7.7) k/uL Lymphocytes # (1.0-4.8) k/uL Monocytes # (0-1.0) k/uL Eosinophils # (0-0.7) k/uL Basophils # (0-0.2) k/uL PT (9.0-12.0) sec INR (<1.2) APTT (22.0-30.0) sec Sodium (137-145) mmol/L Potassium (3.5-5.1) mmol/L Chloride (98-107) mmol/L Carbon Dioxide (22-30) mmol/L Anion Gap mmol/L BUN (9-20) mg/dL Creatinine (0.66-1.25) mg/dL Est GFR (CKD-EPI)AfAm (>60 ml/min/1.73 sqM) Est GFR (CKD-EPI)NonAf (>60 ml/min/1.73 sqM) Glucose (74-99) mg/dL Calcium (8.4-10.2) mg/dL Phosphorus (2.5-4.5) mg/dL Magnesium (1.6-2.3) mg/dL Total Bilirubin (0.2-1.3) mg/dL AST (17-59) U/L ALT (4-49) U/L Alkaline Phosphatase (38-126) U/L Creatine Kinase (55-170) U/L Troponin I <0.012 (0.000-0.034) ng/mL Total Protein (6.3-8.2) g/dL Albumin (3.5-5.0) g/dL - Medical Decision Making 43 male to the emergency department for evaluation presents today for evaluation regards to stroke symptoms, expressive aphasia history of old CVA. Patient was not a TPA candidate secondary to timing and onset of symptoms greater than 2 days ago. Family states patient may have had a hole in his heart but unsure. Patient is currently on any blood thinners. Patient will be admitted for neurological evaluation and treatment (Efra Reid) Past Medical History Past Medical History: CVA/TIA Additional Past Medical History / Comment(s): Right ventricular dysfunction, non-rheumatic tricuspid valve insufficiency, palpitations History of Any Multi-Drug Resistant Organisms: MRSA Date of last positivie culture/infection: 2007 MDRO Source:: buttocks Past Surgical History: No Surgical Hx Reported Additional Past Surgical History / Comment(s): valve replacement as a infant (mustard surgery,) transposition of the great arteries Past Anesthesia/Blood Transfusion Reactions: No Reported Reaction Past Psychological History: No Psychological Hx Reported Smoking Status: Current every day smoker Past Alcohol Use History: None Reported Past Drug Use History: Marijuana - Past Family History Father History Unknown: Yes Mother Family Medical History: Cancer Additional Family Medical History / Comment(s): mom and grandmother both had breast cancer <Kirt Alva - Last Filed: 04/21/23 14:53> Course <Efra Reid - Last Filed: 04/22/23 17:08> Vital Signs 04/21/23 04/21/23 04/21/23 14:43 16:48 17:15 Temperature 98.1 F Pulse Rate 81 64 63 Respiratory 16 18 16 Rate Blood Pressure 150/98 144/93 150/100 O2 Sat by Pulse 98 100 100 Oximetry 04/21/23 04/21/23 04/21/23 17:45 18:15 21:20 Temperature Pulse Rate 58 L 60 62 Respiratory 18 15 16 Rate Blood Pressure 140/89 133/98 137/88 O2 Sat by Pulse 99 99 97 Oximetry 04/21/23 04/22/23 04/22/23 22:00 00:00 02:00 Temperature Pulse Rate 66 56 L 65 Respiratory 17 13 14 Rate Blood Pressure 137/88 126/95 115/71 O2 Sat by Pulse 96 98 98 Oximetry 04/22/23 04/22/23 04/22/23 03:00 04:00 05:00 Temperature Pulse Rate 58 L 51 L 57 L Respiratory 16 14 15 Rate Blood Pressure 118/79 129/88 122/85 O2 Sat by Pulse 98 97 95 Oximetry 04/22/23 04/22/23 04/22/23 06:00 07:35 11:47 Temperature Pulse Rate 55 L 60 48 L Respiratory 16 17 17 Rate Blood Pressure 124/82 122/86 142/100 O2 Sat by Pulse 96 99 99 Oximetry 04/22/23 16:51 Temperature Pulse Rate 65 Respiratory 18 Rate Blood Pressure 113/88 O2 Sat by Pulse 99 Oximetry - Reevaluation(s) Reevaluation #1: 04/21/23 17:50 Medical record is reviewed Patient was outside the window for both code alteplase and code stroke, symptoms greater than 24 hours Patient was not a TPA candidate secondary to above (Efra Reid) Reevaluation #2: 04/21/23 17:51 Patient has same symptoms, no change in speech (Efra Reid) Reevaluation #3: 04/21/23 17:51 Patient informed results and questions answered (Efra Reid) Reevaluation #4: 04/21/23 17:51 Was pt. sent in by a medical professional or institution? @ -no Did you speak to anyone other than the patient for history? @ -no Did you review nursing and triage notes? @ -agree Were old charts reviewed? @ -yes Differential Diagnosis? @ -prior EKG interpreted by me (3pts min.)? @ -yes X-rays interpreted by me (1pt min.)? @ -yes CT interpreted by me (1pt min.)? @ -no U/S interpreted by me (1pt. min.)? @ -no What testing was considered but not performed? (CT, X-rays, U/S, labs)? Why? @ -no What meds were considered but not given? Why? @ -no Did you discuss the management of the patient with other professionals? @ -no Did you reconcile home meds? @ -no Was smoking cessation discussed for >3mins.? @ -no Was critical care preformed (if so, how long)? @ -no Were there social determinants of health that impacted care today? How? (Homelessness, low income, unemployed, alcoholism, drug addiction, transpo rtation, low edu. Level, literacy, decrease access to med. care, group home, rehab)? @ -no Was there de-escalation of care discussed even if they declined? (Discuss DNR or withdrawal of care, Hospice)? @ -no What co-morbidities impacted this encounter? (DM, HTN, Smoking, COPD, CAD, Cancer, CVA, Hep., AIDS, mental health diagnosis, sleep apnea, morbid obesity)? @ -none Was patient admitted / discharged? @ - Undiagnosed new problem with uncertain prognosis? @ -no Drug Therapy requiring intensive monitoring for toxicity (Heparin, Nitro, Insulin, Cardizem)? @ -no Were any procedures done? @ -no Diagnosis/symptom? @ - Acute, or Chronic, or Acute on Chronic? @ -acute Uncomplicated (without systemic symptoms) or Complicated (systemic symptoms)? @ -complicated Side effects of treatment? @ -no Exacerbation, Progression, or Severe Exacerbation] @ -no Poses a threat to life or bodily function? @ -yes (Efra Reid) Reevaluation #5: 04/21/23 17:51 Differential Altered Mental Status: Hypoglycemia, DKA, hypercapnia, ETOH, overdose, CO poisoning, trauma, myxedema coma, HTN encephalopathy, infection, encephalitis, psychosis, intercranial hemorrhage, hepatic encephalopathy, meningitis, CVA, this is not meant to be an all-inclusive list (Efra Reid) - Consultations Consultation #1: Spoke with Dr. Cazares who is okay for admission (Efra Reid) Critical Care Time Critical Care Time: Yes Total Critical Care Time: 31 <Efra Reid - Last Filed: 04/22/23 17:08> Disposition <Kirt Alva - Last Filed: 04/21/23 14:53> Is patient prescribed a controlled substance at d/c from ED?: No Time of Disposition: 17:30 <Efra Reid - Last Filed: 04/22/23 17:08> Clinical Impression: Transient cerebral ischemia, Cerebrovascular accident (CVA), Cerebrovascular accident, Expressive aphasia Disposition: ADMITTED IP TO THIS HOSP Condition: Fair
[2023-04-21 15:20] LABS: Basophils % (A) 0 %; Eosinophils # (A) 0.2 k/uL (0-0.7); Eosinophils % (A) 3 %; HCT 46.5 % (39.0-53.0); HGB 15.5 gm/dL (13.0-17.5); Lymphocytes # (A) 1.7 k/uL (1.0-4.8); Lymphocytes % (A) 23 %; MCH 30.5 pg (25.0-35.0); MCHC 33.3 g/dL (31.0-37.0); MCV 91.7 fL (80.0-100.0); Monocytes # (A) 0.4 k/uL (0-1.0); Monocytes % (A) 6 %; Neutrophils % (A) 68 %; Platelet Count 186 k/uL (150-450); RBC 5.07 m/uL (4.30-5.90); RDW 13.4 % (11.5-15.5); WBC 7.4 k/uL (3.8-10.6)
[2023-04-21 15:27] LABS: ALT 13 U/L (4-49); AST 20 U/L (17-59); African American GFR (CKD) 90 (>60 ml/min/1.73 sqM); Albumin 4.3 g/dL (3.5-5.0); Alkaline Phosphatase 99 U/L (38-126); Anion Gap 8 mmol/L; Blood Urea Nitrogen 13 mg/dL (9-20); Calcium 9.2 mg/dL (8.4-10.2); Carbon Dioxide 24 mmol/L (22-30); Chloride 104 mmol/L (98-107); Creatine Kinase 51 U/L (55-170); Glucose 116 mg/dL (74-99); Non-African American GFR(CKD) 78 (>60 ml/min/1.73 sqM); Potassium 4.4 mmol/L (3.5-5.1); Sodium 136 mmol/L (137-145); Total Bilirubin 0.7 mg/dL (0.2-1.3); Total Protein 7.7 g/dL (6.3-8.2)
[2023-04-21 15:35] LABS: Partial Thromboplastin Time 23.1 sec (22.0-30.0); Prothrombin Time 10.8 sec (9.0-12.0)
--- NOTE | 2023-04-21 16:13 | CT ---
EXAMINATION TYPE: CT brain wo con CT DLP: 1106.6 mGycm, Automated exposure control for dose reduction was used. DATE OF EXAM: 04/21/2023 4:06 PM COMPARISON: 05/02/2018 CLINICAL INDICATION:Male, 43 years old with history of Neuro deficit, acute, stroke suspected, cva TECHNIQUE: Brain: Axial CT images of the brain were obtained with coronal and sagittal reformats created and rev iewed. Contrast used: None. Oral contrast used: None. FINDINGS: Brain: Extra-axial spaces: No abnormal extra-axial fluid collections. Ventricular system: Within normal limits Cerebral parenchyma: Left temporal lobe and left frontal lobe cortex loss of edwards-white matter differ entiation. Old CVA involving the left insular cortex. No acute intraparenchymal hemorrhage or mass ef fect. The edwards-white junction is well differentiated. Cerebellum: Unremarkable. Mass effect: No evidence of midline shift. Intracranial vasculature: unremarkable Soft tissues: Normal. Calvarium/osseous structures: No depressed skull fracture. Paranasal sinuses and mastoid air cells: Mild scattered paranasal sinus disease. Visualized orbits: Orbital contents are intact. IMPRESSION: 1. Acute/subacute CVA involving the left frontal lobe and left temporal lobe medially. 2. Old left temporal lobe insular cortex CVA with encephalomalacia.
--- NOTE | 2023-04-21 16:21 | XR ---
EXAMINATION TYPE: XR chest 2V DATE OF EXAM: 04/21/2023 4:07 PM COMPARISON: Chest radiographs from 10/24/2019 TECHNIQUE: XR chest 2V Frontal and lateral views of the chest. CLINICAL INDICATION:Male, 43 years old with history of altered mental status; FINDINGS: Lungs/Pleura: There is no evidence of pleural effusion, focal consolidation, or pneumothorax. Pulmonary vascularity: Unremarkable. Heart/mediastinum: Cardiomediastinal silhouette is unremarkable. Musculoskeletal: No acute osseous pathology. IMPRESSION: No acute cardiopulmonary disease/process.
--- NOTE | 2023-04-21 16:41 | CT ---
EXAMINATION TYPE: CT angio head neck CT DLP: 451.7 mGycm, Automated exposure control for dose reduction was used. DATE OF EXAM: 04/21/2023 4:28 PM COMPARISON: 05/02/2018. CLINICAL INDICATION:Male, 43 years old with history of Neuro deficit, acute, stroke suspected; PHH, c va TECHNIQUE: Axially acquired helical CT angiogram of the head and neck was obtained with contrast. Axi al images are supplemented with 3D reconstructions which [facility] NASCET criteria used. Contrast used:65cc mL of Isovue 370 with IV Contrast, Oral contrast used: None. FINDINGS: CTA HEAD: No evidence of acute intracranial hemorrhage, mass effect, or midline shift. The ventricles, sulci, a nd cisterns are unremarkable. The visualized portions of the internal carotid arteries, middle cerebral arteries, anterior cerebral arteries, and posterior cerebral arteries are patent. The basilar and vertebral arteries are patent. CTA NECK: Right Carotid System: The common carotid artery and external carotid artery are patent. The carotid bifurcation demonstrate s no evidence of hemodynamically significant stenosis. The remaining portions of the internal carotid artery demonstrate normal size without significant narrowing. Left Carotid System: The common carotid artery and external carotid artery are patent. The carotid bifurcation demonstrate s no evidence of hemodynamically significant stenosis. The remaining portions of the internal carotid artery demonstrate normal size without significant narrowing. Vertebral arteries are patent without evidence hemodynamically significant stenosis. There is a three-vessel aortic arch. The origins of the great vessels are patent. No evidence of hemo dynamically significant stenosis. Upper thorax: Mild paraseptal emphysema changes in lung apices. IMPRESSION: 1. No evidence of dissection of the cervical internal carotid arteries or vertebral arteries or any e vidence of significant stenosis at the carotid bifurcations. 2. No evidence of intracranial high-grade stenosis or intracranial aneurysm.
[2023-04-21] MEDS ORDERED: SODIUM CHLORIDE 0.9% 1,000 ML IV STA (16:42)
[2023-04-21 17:01] LABS: Magnesium 1.9 mg/dL (1.6-2.3); Phosphorus 2.6 mg/dL (2.5-4.5)
[2023-04-21] MEDS ORDERED: NALOXONE 0.4 MG/ML 1 ML VIAL IV PRN (17:27)
[2023-04-21] MEDS ORDERED: ONDANSETRON 4 MG/2 ML VIAL IVP PRN (17:27)
[2023-04-21] MEDS: SODIUM CHLORIDE 0.9% 1,000 ML IV SCH (19:45)
[2023-04-21] MEDS: ASPIRIN 325 MG TAB PO SCH (22:36)
[2023-04-22] MEDS: SODIUM CHLORIDE 0.9% 1,000 ML IV SCH ×3 (01:29→15:46)
[2023-04-22 07:59] LABS: Basophils % (A) 0 %; Eosinophils # (A) 0.1 k/uL (0-0.7); Eosinophils % (A) 2 %; HCT 43.5 % (39.0-53.0); HGB 14.5 gm/dL (13.0-17.5); Lymphocytes # (A) 2.6 k/uL (1.0-4.8); Lymphocytes % (A) 36 %; MCH 30.6 pg (25.0-35.0); MCHC 33.3 g/dL (31.0-37.0); MCV 91.9 fL (80.0-100.0); Mean Platelet Volume 9.3; Monocytes # (A) 0.5 k/uL (0-1.0); Monocytes % (A) 7 %; Neutrophils # (A) 3.9 k/uL (1.3-7.7); Neutrophils % (A) 54 %; Platelet Count 158 k/uL (150-450); RBC 4.74 m/uL (4.30-5.90); RDW 13.4 % (11.5-15.5); WBC 7.3 k/uL (3.8-10.6)
[2023-04-22] MEDS: ASPIRIN 325 MG TAB PO SCH (08:07)
[2023-04-22 08:10] LABS: ALT 12 U/L (4-49); AST 18 U/L (17-59); African American GFR (CKD) >90 (>60 ml/min/1.73 sqM); Albumin 3.5 g/dL (3.5-5.0); Alkaline Phosphatase 97 U/L (38-126); Anion Gap 7 mmol/L; Blood Urea Nitrogen 11 mg/dL (9-20); Calcium 8.7 mg/dL (8.4-10.2); Carbon Dioxide 22 mmol/L (22-30); Chloride 110 mmol/L (98-107); Glucose 95 mg/dL (74-99); Magnesium 1.9 mg/dL (1.6-2.3); Non-African American GFR(CKD) >90 (>60 ml/min/1.73 sqM); Phosphorus 3.2 mg/dL (2.5-4.5); Potassium 4.3 mmol/L (3.5-5.1); Sodium 139 mmol/L (137-145); Total Bilirubin 1.1 mg/dL (0.2-1.3); Total Protein 6.5 g/dL (6.3-8.2)
[2023-04-22] MEDS: CLOPIDOGREL 75 MG TAB PO SCH (11:13)
--- NOTE | 2023-04-22 11:58 | P.CNNES ---
History of Present Illness Consult date: 04/22/23 Requesting physician: Efra Reid Reason for Consult: cva History of Present Illness: This is a 43-year-old gentleman with history of old stroke about 5 years ago and was she had slurred speech and the gait issues that resolved, tobacco use, noncompliance with medication and not following up with medical care resented emergency department because of difficulty getting his words out. The patient is accompanied with his and his mother. Seems to the patient the has been having difficulty getting his words out for the past 2 days according to the and then the the date. Before he presented to the hospital she felt he was confused. It seems the patient is on aspirin but per the is not compliant taking that the medication every day. He had a stroke about 5 the years ago and he had slurring the speech and gait difficulty which resolved. Patient followed up initially with cardiology team over a [facility] but then that after some appointments he stopped following up. He smokes a pack a day. He denies any illicit drug use. Patient's mother stated that she had stroke at at his age in her 40s. Patient has not followed up with a neurologist as an outpatient for his history of strokes. Some of the workup during his hospital visit consisted of: CT of the head is reported as acute/subacute CVA involving left frontal lobe and left temporal lobe medially. I personally reviewed the CT I feel it's left frontal parietal and I agree with him and the temporal as well. There is no intraparenchymal bleed. CT angiography of the head and neck was reported as no evidence of dissection of the cervical internal carotid arteries or vertebral arteries or any evidence of significant stenosis at the carotid bifurcation. No evidence of intracranial high-grade stenosis or intracranial aneurysm. Patient did not receive IV TPA since he's outside the window and that his sympto ms began 2 days prior to presenting to the hospital. The risk of IV TPA outweigh the benefit. Review of Systems Review of system: The 12 point system was reviewed and apparent positive and negative per HPI. Past Medical History Past Medical History: CVA/TIA Additional Past Medical History / Comment(s): Right ventricular dysfunction, non-rheumatic tricuspid valve insufficiency, palpitations History of Any Multi-Drug Resistant Organisms: MRSA Date of last positivie culture/infection: 2007 MDRO Source:: buttocks Past Surgical History: No Surgical Hx Reported Additional Past Surgical History / Comment(s): valve replacement as a (mustard surgery,) transposition of the great arteries Past Anesthesia/Blood Transfusion Reactions: No Reported Reaction Past Psychological History: No Psychological Hx Reported Smoking Status: Current every day smoker Past Alcohol Use History: None Reported Past Drug Use History: Marijuana - Past Family History Father History Unknown: Yes Mother Family Medical History: Cancer Additional Family Medical History / Comment(s): mom and grandmother both had breast cancer Medications and Allergies Home Medications Medication Instructions Recorded Confirmed Type No Known Home Medications 10/24/19 04/21/23 History Allergies Allergy/AdvReac Type Severity Reaction Status Date / Time No Known Allergies Allergy Verified 04/21/23 19:49 Physical Examination - Vital Signs Vital Signs: Vital Signs Temp Pulse Resp BP Pulse Ox 04/22/23 07:35 60 17 122/86 99 04/22/23 06:00 55 L 16 124/82 96 04/22/23 05:00 57 L 15 122/85 95 04/22/23 04:00 51 L 14 129/88 97 04/22/23 03:00 58 L 16 118/79 98 04/22/23 02:00 65 14 115/71 98 04/22/23 00:00 56 L 13 126/95 98 04/21/23 22:00 66 17 137/88 96 04/21/23 21:20 62 16 137/88 97 04/21/23 18:15 60 15 133/98 99 04/21/23 17:45 58 L 18 140/89 99 04/21/23 17:15 63 16 150/100 100 04/21/23 16:48 64 18 144/93 100 04/21/23 14:43 98.1 F 81 16 150/98 98 GENERAL: The patient is lying in bed and is not in acute distress. CHEST: No carotid bruit bilaterally. NEUROLOGICAL: Higher mental function: The patient is awake, alert, oriented to self, place and time. Patient is slow responding to question. Has moderate to severe expressive aphasia. Patient is following simple commands. No neglect. Cranial nerves: The pupils are round, equal and reactive to light and accommodation. Visual sadler are full to confrontation throughout. Extraocular movement is intact no nystagmus is noted. Facial sensation is normal to touch throughout. The facial strength is normal throughout. Hearing is normal bilaterally to hand rub. Tongue is midline and moved [id number] without any difficulty. No dysarthria is noted. Shoulder shrug is normal bilaterally. Motor: The strength is 5 over 5 throughout. Normal tone and bulk. Cerebellum: Normal finger to nose heel to grady bilaterally. Sensation: Sensation is normal to touch throughout. Reflexes (right/left): 2+ throughout. Plantars are mute bilaterally. Results - Laboratory Findings CBC and BMP: 04/22/23 07:27 04/22/23 07:27 Abnormal Lab Findings: Abnormal Labs 04/21/23 04/22/23 15:05 07:27 Sodium 136 L Chloride 110 H Glucose 116 H Creatine Kinase 51 L Assessment and Plan Assessment: This is a 43-year-old gentleman with history of stroke about 5 years ago in which she had the slurred speech and gait difficulty that resolved was not compliant taking his medication and smokes 1 pack a day presents because 2 days prior to present the hospital he's been having difficulty getting his words out. Acute to subacute ischemic stroke over left frontal parietal temporal region. Patient has expresive aphasia. I think likely due to hypercoagulable especially with family history of stroke at a young age. History of old stroke about 5 years ago Tobacco use Noncompliant take his medication Not following-up for medical care Plan: I ordered MRI of the brain without to get better evaluation of his strokes that are acute subacute. Patient is started on aspirin 325 daily by his PCP (patient was not compliant taking ASA). In addition I start the patient on Plavix 75 mg daily. I started the patient on Lipitor 80 mg daily at bedtime for secondary stroke prophylaxis 2-D echo (with bubble study), lipid panel, TSH, hemoglobin and A1c is ordered and is pending I ordered young hypercoagulable workup For his episode of confusion I feel likely due to his stroke but I ordered an EEG to rule out any underlying seizure or discharges. On every 4 hours neuro checks Cardiac monitoring Consulted PT OT and [employer] Patient was counseled on tobacco cessation. He was counseled on follow-up with appointments and to follow-up with neurologist as an outpatient. We'll defer the rest of the medical management to the primary team For DVT prophylaxis I started the patient on subcu heparin 5000 units every 8 hours The plan was discussed with the patient and his family members are bedside ( and the mother). Date of consultation Time with Patient: than 30
--- NOTE | 2023-04-22 15:15 | CA ---
Transthoracic Echo Report Name: Pa Awan Age: 43 Gender: M : 1980 Exam Date: 04/22/2023 08:33 Exam Location: [facility] Ht (in): 71 Wt (lb): 125 Ordering Physician: Malika Cazares MD Attending/Referring Phys: Head Of Conservation Daya Cortez RDCS Procedure CPT: Indications: CVA Cardiac Hx: mustard procedure Technical Quality: Technically difficult study Contrast 1: Total Dose (mL): Contrast 2: Total Dose (mL): MEASUREMENTS (Male / Female) Normal Values 2D ECHO LV Diastolic Diameter PLAX 2.5 cm 4.2 - 5.9 / 3.9 - 5.3 cm LV Systolic Diameter PLAX 1.8 cm IVS Diastolic Thickness 1.7 cm 0.6 - 1.0 / 0.6 - 0.9 cm LVPW Diastolic Thickness 1.4 cm 0.6 - 1.0 / 0.6 - 0.9 cm LV Relative Wall Thickness 1.2 RV Internal Dim ED PLAX 4.1 cm LA Systolic Diameter LX 2.6 cm 3.0 - 4.0 / 2.7 - 3.8 cm M-MODE Aortic Root Diameter MM 2.8 cm MV E Point Septal Separation 1.1 cm AV Cusp Separation MM 1.8 cm DOPPLER MV Area PHT 2.5 cm??? MV Deceleration Time 344.1 ms TR Peak Velocity 79007.0 cm/s TR Peak Gradient 52585.0 mmHg Right Ventricular Systolic Press 116.0 mmHg FINDINGS Left Ventricle Small left ventricular cavity. Left ventricular ejection fraction is estimated at 50-55 %. Moderately increased septal wall thickness. Right Ventricle Severe right ventricular dilatation. Severe pulmonary hypertension. Right ventricular systolic pressure estimated at 116 mm hg. Severely reduced right ventricular global systolic function. Right Atrium No right atrial thrombus or mass seen. Bubbles study not performed due TDS Left Atrium No left atrial thrombus or mass present. Mitral Valve Structurally normal mitral valve. No mitral stenosis, regurgitation or prolapse. Aortic Valve Aortic valve not well visualized. No aortic valve stenosis or regurgitation. Tricuspid Valve Structurally normal tricuspid valve. [id number] tricuspid regurgitation. Pulmonic Valve Pulmonic valve not well visualized. Pericardium Normal pericardium. No pericardial effusion. Aorta Normal size aortic root and proximal ascending aorta. CONCLUSIONS Compressed LV cavity Severe RV enlargement with pressure overload and severe pulmonary hypertension Previewed by: Dr. Brett Mancia MD (Electronically Signed) Final Date: 22 April 2023 15:14
[2023-04-22] MEDS: HEPARIN SODIUM,PORCINE/PF 5,000 UNIT/0.5 ML SYRINGE SQ SCH ×2 (15:53→23:52)
[2023-04-22 16:28] LABS: Chol/HDL Ratio 6.59 Ratio; LDL Cholesterol,Calculated 115.4 mg/dL (0.0-131.0)
--- NOTE | 2023-04-22 17:18 | P.HPIM ---
History of Present Illness H&P Date: 04/22/23 Pa Awan, is a 43-year-old male who presented to [facility] emergency room with a chief complaint of speech difficulty, patient was having getting his words out, per family members patient had a stroke 5 years ago where he had slurred speech and gait disturbance, his symptoms have resolved from the old stroke, however he started having slurred speech 2 days ago, which has been worsening, patient started having confusion and his family decided to bring him to emergency room. He was evaluated in the emergency room vital examination on presentation revealed a temperature of 98.1 pulse 81 respiration 16 blood pressure 150/98 pulse ox 98% on room air Laboratory data revealed a white blood count of 7.4 hemoglobin 15.5 platelet count 186 sodium 136 potassium 4.4 chloride 104 CO2 24 BUN 13 creatinine 1.14 Testing in the emergency room revealed computed tomography scan of the brain revealed acute/subacute CVA involving the left frontal lobe and left temporal lobe medially, patient also had evidence of old left temporal lobe CVA with encephalomalacia. CT angiogram of the head and neck revealed no evidence of dissection of the cervical internal carotid arteries or vertebral arteries or any evidence of significant stenosis at the carotid bifurcation there was no evidence of intracranial high-grade stenosis or intracranial aneurysm. Chest x- ray done in the emergency room revealed no acute cardiopulmonary disease. Patient was admitted to medical floor for further evaluation and treatment Past medical history is significant for history of stroke 5 years ago, history of valve replacement as an infant, history of MRSA infections in the past, history of tricuspid valve insufficiency, history of right ventricular dysfunction. Past Medical History Past Medical History: CVA/TIA Additional Past Medical History / Comment(s): Right ventricular dysfunction, non-rheumatic tricuspid valve insufficiency, palpitations History of Any Multi-Drug Resistant Organisms: MRSA Date of last positivie culture/infection: 2007 MDRO Source:: buttocks Past Surgical History: No Surgical Hx Reported Additional Past Surgical History / Comment(s): valve replacement as a (mustard surgery,) transposition of the great arteries Past Anesthesia/Blood Transfusion Reactions: No Reported Reaction Past Psychological History: No Psychological Hx Reported Smoking Status: Current every day smoker Past Alcohol Use History: None Reported Past Drug Use History: Marijuana - Past Family History Father History Unknown: Yes Mother Family Medical History: Cancer Additional Family Medical History / Comment(s): mom and grandmother both had breast cancer Medications and Allergies Home Medications Medication Instructions Recorded Confirmed Type No Known Home Medications 10/24/19 04/21/23 History Allergies Allergy/AdvReac Type Severity Reaction Status Date / Time No Known Allergies Allergy Verified 04/21/23 19:49 Physical Exam Vitals: Vital Signs Temp Pulse Resp BP Pulse Ox 04/22/23 07:35 60 17 122/86 99 04/22/23 06:00 55 L 16 124/82 96 04/22/23 05:00 57 L 15 122/85 95 04/22/23 04:00 51 L 14 129/88 97 04/22/23 03:00 58 L 16 118/79 98 04/22/23 02:00 65 14 115/71 98 04/22/23 00:00 56 L 13 126/95 98 04/21/23 22:00 66 17 137/88 96 04/21/23 21:20 62 16 137/88 97 04/21/23 18:15 60 15 133/98 99 04/21/23 17:45 58 L 18 140/89 99 04/21/23 17:15 63 16 150/100 100 04/21/23 16:48 64 18 144/93 100 04/21/23 14:43 98.1 F 81 16 150/98 98 In general patient is alert and oriented x 3 in no distress HEENT head normocephalic and atraumatic Neck is supple no JVD no goiter no lymphadenopathy no carotid bruit Chest examination is clear to auscultation no crackles no wheezing Cardiac exam reveals regular heart sounds S1 and S2 no gallops no murmurs Abdomen is soft nontender no organomegaly with normal bowel sounds Extremity exam reveals no edema no cyanosis or clubbing Neurological examination reveals patient is alert responsive speech with severe expressive aphasia patient is able to say a few words cranial nerve II-12 otherwise are intact there is no focal motor or sensory deficit in the extremities reflexes are 2+ symmetrical and plantars are achy focal bilaterally Results CBC & Chem 7: 04/22/23 07:27 04/22/23 07:27 Labs: Abnormal Lab Results - Last 24 Hours (Table) 04/21/23 04/22/23 Range/Units 15:05 07:27 Sodium 136 L (137-145) mmol/L Chloride 110 H (98-107) mmol/L Glucose 116 H (74-99) mg/dL Creatine Kinase 51 L (55-170) U/L Assessment and Plan Assessment: Acute ischemic stroke Expressive aphasia Mental status changes Previous history of stroke 5 years ago Previous history of valvular heart surgery in childhood Poor follow-up with medical care patient has not seen a physician in years Underlying history of tobacco abuse At this time patient is admitted to telemetry floor Cardiology consult and neurology consult requested Patient was started on aspirin 325 mg daily Echocardiogram ordered Counseled in length in regard to smoking cessation Will follow closely
[2023-04-22 19:05] VITALS: RESP 16
[2023-04-22] MEDS ORDERED: ATORVASTATIN 80 MG TAB PO SCH (21:00)
[2023-04-23 01:30] LABS: Anti-DNA, DS unit <1.0 IU/mL; DNA Double-Stranded Negative (Negative)
[2023-04-23] MEDS: SODIUM CHLORIDE 0.9% 1,000 ML IV SCH ×2 (02:13→07:38)
--- NOTE | 2023-04-23 07:08 | P.CRDCN ---
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 He underwent further workup including EKG showing sinus mechanism. He also underwent computed tomography scan of the brain which showed acute/subacute infarct involving the left parietal lobe and left frontal lobe as well as he underwent neck CTA showed no evidence of carotid dissection or any hematemesis significant stenosis. The patient underwent also an echocardiogram showing normal LV systolic function was evidence of severe pulmonary hypertension and severe RV predilatation. Finding and change compared to before. The patient was seen by our service back in 2019 for further evaluation of stroke and at that point he underwent transesophageal echocardiogram which was technically very difficult but no evidence of cardiac embolization identified. Currently the patient doesn't follow with any local technical document writer nor any technical document writer at tertiary center. He was advised to be seen there. He reports no pain in the chest and no shortness of breath and no dizziness or light and is in no feeling of heart racing or fluttering. Hemodynamically he is disabled beside marginally low heart rate. 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 Severe pulmonary hypertension Severe RV predilatation Plan Continue the current medical regimen including dual antiplatelet therapy The patient underwent LEEANNE in the past and that showed no evidence of cardiac so urce of embolization I would advise the patient to be evaluated at the program with adult congenital heart disease Follow-up with the patient Past Medical History Past Medical History: CVA/TIA Additional Past Medical History / Comment(s): Right ventricular dysfunction, non-rheumatic tricuspid valve insufficiency, palpitations, transposition of great the arteries History of Any Multi-Drug Resistant Organisms: MRSA Date of last positivie culture/infection: 2007 MDRO Source:: buttocks Past Surgical History: No Surgical Hx Reported Additional Past Surgical History / Comment(s): valve replacement as a infant (mustard surgery,) transposition of the great arteries Past Anesthesia/Blood Transfusion Reactions: No Reported Reaction Past Psychological History: No Psychological Hx Reported Smoking Status: Current every day smoker Past Alcohol Use History: None Reported Additional Past Alcohol Use History / Comment(s): started smoking at age 9, smokes 1 ppd Past Drug Use History: Marijuana Additional Drug Use History / Comment(s): daily use of marijuana - Past Family History Father History Unknown: Yes Mother Family Medical History: Cancer Additional Family Medical History / Comment(s): mom and grandmother both had breast cancer Medications and Allergies Home Medications Medication Instructions Recorded Confirmed Type No Known Home Medications 10/24/19 04/21/23 History Allergies Allergy/AdvReac Type Severity Reaction Status Date / Time No Known Allergies Allergy Verified 04/21/23 19:49 Physical Exam Vitals: Vital Signs Temp Pulse Pulse Resp BP BP Pulse Ox 04/23/23 04:00 97.9 F 44 L 16 110/71 97 04/22/23 23:54 45 L 16 106/68 98 04/22/23 20:00 48 L 16 116/69 99 04/22/23 19:00 98.1 F 54 L 16 108/61 99 04/22/23 16:51 65 18 113/88 99 04/22/23 11:47 48 L 17 142/100 99 04/22/23 07:35 60 17 122/86 99 Intake and Output 04/22/23 04/23/23 04/23/23 22:59 06:59 14:59 Other: Weight 56.699 kg Results 04/22/23 07:27 04/22/23 07:27 Cardiac Enzymes 04/22/23 Range/Units 07:27 AST 18 (17-59) U/L Lipids 04/22/23 Range/Units 07:27 Triglycerides 144.00 (0.00-149.00) mg/dL Cholesterol 170.00 (0.00-200.00) mg/dL HDL Cholesterol 25.80 L (40.00-60.00) mg/dL Cholesterol/HDL Ratio 6.59 Ratio CBC 04/22/23 Range/Units 07:27 WBC 7.3 (3.8-10.6) k/uL RBC 4.74 (4.30-5.90) m/uL Hgb 14.5 (13.0-17.5) gm/dL Hct 43.5 (39.0-53.0) % Plt Count 158 (150-450) k/uL Comprehensive Metabolic Panel 04/22/23 Range/Units 07:27 Sodium 139 (137-145) mmol/L Potassium 4.3 (3.5-5.1) mmol/L Chloride 110 H (98-107) mmol/L Carbon Dioxide 22 (22-30) mmol/L BUN 11 (9-20) mg/dL Creatinine 0.94 (0.66-1.25) mg/dL Glucose 95 (74-99) mg/dL Calcium 8.7 (8.4-10.2) mg/dL AST 18 (17-59) U/L ALT 12 (4-49) U/L Alkaline Phosphatase 97 (38-126) U/L Total Protein 6.5 (6.3-8.2) g/dL Albumin 3.5 (3.5-5.0) g/dL Current Medications Generic Name Dose Route Start Last Admin Trade Name Freq PRN Reason Stop Dose Admin Aspirin 325 mg 04/21/23 22:30 04/22/23 08:07 Aspirin 325 Mg Tab PO 325 mg DAILY YANA Administration Atorvastatin Calcium 80 mg 04/22/23 21:00 04/22/23 20:30 Atorvastatin 80 Mg Tab PO 80 mg HS YANA Administration Clopidogrel Bisulfate 75 mg 04/22/23 10:45 04/22/23 11:13 Clopidogrel 75 Mg Tab PO 75 mg DAILY YANA Administration Heparin Sodium (Porcine) 5,000 unit 04/22/23 16:00 04/22/23 23:52 Heparin Sodium,Porcine/Pf 5,000 Unit/0.5 Ml Syringe SQ Not Given Q8HR YANA Sodium Chloride 1,000 mls @ 130 mls/hr 04/21/23 17:30 04/23/23 02:13 Saline 0.9% IV Not Given .[id number] YANA Naloxone HCl 0.2 mg 04/21/23 17:27 Naloxone 0.4 Mg/Ml 1 Ml Vial IV Q2M PRN Opioid Reversal Ondansetron HCl 4 mg 04/21/23 17:27 Ondansetron 4 Mg/2 Ml Vial IVP Q8HR PRN Nausea And Vomiting Intake and Output 04/22/23 04/23/23 04/23/23 22:59 06:59 14:59 Other: Weight 56.699 kg 04/22/23 07:27 04/22/23 07:27
[2023-04-23] MEDS: HEPARIN SODIUM,PORCINE/PF 5,000 UNIT/0.5 ML SYRINGE SQ SCH (07:32)
[2023-04-23] MEDS: CLOPIDOGREL 75 MG TAB PO SCH (07:38)
[2023-04-23] MEDS: ASPIRIN 325 MG TAB PO SCH (07:38)
[2023-04-23 08:44] VITALS: TEMP 97.6
--- NOTE | 2023-04-23 10:13 | P.PN ---
Subjective Progress Note Date: 04/23/23 Pa Awan, is a 43-year-old male who presented to [facility] emergency room with a chief complaint of speech difficulty, patient was having getting his words out, per family members patient had a stroke 5 years ago where he had slurred speech and gait disturbance, his symptoms have resolved from the old stroke, however he started having slurred speech 2 days ago, which has been worsening, patient started having confusion and his family decided to bring him to emergency room. He was evaluated in the emergency room vital examination on presentation revealed a temperature of 98.1 pulse 81 respiration 16 blood pressure 150/98 pulse ox 98% on room air Laboratory data revealed a white blood count of 7.4 hemoglobin 15.5 platelet count 186 sodium 136 potassium 4.4 chloride 104 CO2 24 BUN 13 creatinine 1.14 Testing in the emergency room revealed computed tomography scan of the brain revealed acute/subacute CVA involving the left frontal lobe and left temporal lobe medially, patient also had evidence of old left temporal lobe CVA with encephalomalacia. CT angiogram of the head and neck revealed no evidence of dissection of the cervical internal carotid arteries or vertebral arteries or any evidence of significant stenosis at the carotid bifurcation there was no evidence of intracranial high-grade stenosis or intracranial aneurysm. Chest x- ray done in the emergency room revealed no acute cardiopulmonary disease. Patient was admitted to medical floor for further evaluation and treatment Past medical history is significant for history of stroke 5 years ago, history of valve replacement as an , history of MRSA infections in the past, history of tricuspid valve insufficiency, history of right ventricular dysfunction. On 04/23/2023 patient is alert and oriented 3. Patient was started on intracranial ablation of Plavix and aspirin. Patient evaluated by pulmonary and cardiology services. Plans for MRI and EEG today. Hematology services also consulted for hypercoagulable state. Patient reports improvement with speech no further neurological symptoms. Patient denies chest pain or shortness of breath. Patient denies nausea vomiting or diarrhea. Patient denies any urinary burning or frequency Objective - Vital Signs Vital signs: Vital Signs Temp 97.6 F 04/23/23 07:32 Pulse 61 04/23/23 07:32 Resp 16 04/23/23 07:32 BP 134/85 04/23/23 07:32 Pulse Ox 99 04/23/23 07:32 FiO2 Intake & Output 04/22/23 04/23/23 04/23/23 18:59 06:59 18:59 Weight 56.699 kg Other: Voiding Method Toilet # Voids 1 - Exam In general patient is alert and oriented x 3 in no distress HEENT head normocephalic and atraumatic Neck is supple no JVD no goiter no lymphadenopathy no carotid bruit Chest examination is clear to auscultation no crackles no wheezing Cardiac exam reveals regular heart sounds S1 and S2 no gallops no murmurs Abdomen is soft nontender no organomegaly with normal bowel sounds Extremity exam reveals no edema no cyanosis or clubbing Neurological examination reveals patient is alert responsive speech with severe expressive aphasia patient is able to say a few words cranial nerve II-12 otherwise are intact there is no focal motor or sensory deficit in the extremities reflexes are 2+ symmetrical and plantars are achy focal bilaterally - Labs CBC & Chem 7: 04/22/23 07:27 04/22/23 07:27 Labs: Abnormal Lab Results - Last 24 Hours (Table) 04/22/23 Range/Units 07:27 HDL Cholesterol 25.80 L (40.00-60.00) mg/dL Assessment and Plan Assessment: Acute ischemic stroke Expressive aphasia Mental status changes Previous history of stroke 5 years ago Previous history of valvular heart surgery in childhood Poor follow-up with medical care patient has not seen a physician in years Underlying history of tobacco abuse At this time patient is admitted to telemetry floor Cardiology consult and neurology consult requested Patient was started on aspirin 325 mg daily Echocardiogram ordered MRI and EEG ordered Counseled in length in regard to smoking cessation Will follow closely
[2023-04-23 10:20] LABS: Protein C Antigen 97 % (72-160)
[2023-04-23 12:01] LABS: Anti-Thrombin III Antigen 88 % (80 - 120); Protein S Antigen 77 % (50 - 140)
--- NOTE | 2023-04-23 12:11 | CDI ---
Documentation Clarification Form Date: 04/23/2023 11:52:48 AM From: Rama Vizcaino RN, CCDS Email: [email or web address] Admit Date: 04/21/2023 05:29:00 PM Patient Name: Pa Awan Visit Number: [id number] Discharge Date: ATTENTION: The Clinical Documentation Specialists (CDI) and [facility] Coding Staff appreciate your assistance in clarifying documentation. Please respond to the clarification below the line at the bottom and electronically sign. The CDI & [facility] Coding staff will review the response and follow-up if needed. Please note: Queries are made part of the Legal Health Record. If you have any questions, please contact the author of this message via ITS. Dr. Malika Cazares Your patient has the documented symptom of Altered Mental Status and confusion in the ED and progress notes. Additional clarification regarding the etiology/cause of this symptom is requested. History/Risk Factors: stroke 5 years ago where he had slurred speech and gait disturbance. Now with worsening slurred speech and confusion. Other history of tricuspid valve insufficiency, valve replacement and hx of MRSA. Admitted with acute ischemic stroke. Clinical Indicators: ED:" Altered mental status." H&P: "patient started having confusion and his family decided to bring him to the emergency room." Neurology: "For his episode of confusion I feel likely due to his stroke but I ordered an EEG to rule out any underlying seizure or discharges." 04/[address]: Acute/subacute CVA involving the left frontal lobe and left temporal lobe medially. Treatment: Plavix 75mg daily. ASA daily. Lipitor 80mg at bedtime for secondary stroke prophylaxis. Neuro checks Q4H. Cardiac monitoring. Hematology consult pending for hypercoagulable state. Please clarify the etiology of the symptom of Altered Mental Status: [ x ] Encephalopathy due to stroke [ ] Other condition (please specify) [ ] Unable to determine MTDD
--- NOTE | 2023-04-23 12:17 | MR ---
EXAMINATION TYPE: MR brain wo con DATE OF EXAM: 04/23/2023 12:09 PM COMPARISON: 05/03/2018. CLINICAL INDICATION:Male, 43 years old with history of stroke. aphasia; Aphasia, evaluate for stroke . TECHNIQUE: Multi planar, multi sequence imaging was performed through the brain including: T1, T2, In version recovery, Diffusion weighted imaging, and gradient echo imaging. No gadolinium was given. FINDINGS: Restricted diffusion is seen within within portions of the left temporal lobe/insular cortex extendin g to the left parietal region. Scattered small areas of restricted diffusion are seen in this left MC A territory cortex. Anterior to this is a remote appearing injury without restricted diffusion to the left frontal lobe insular cortex. Additional generalized cerebral atrophy with proportional dilation to the ventricular system. Scattered foci of high T2 signal intensity are seen within the periventricular white matter. Midline structures show no abnormality. The susceptibility weighted images do not reveal any evidence for mi scroll shear operator-hemorrhage. The bone marrow signal is within normal limits. Paranasal sinuses and mastoid air cells: Mild scattered paranasal sinus disease. Visualized orbits: Bilateral aphakia IMPRESSION: 1. Acute/subacute CVA involving the left MCA territory including portions of the left temporal lobe, left insular cortex, left parietal region and scattered micro-infarcts along the cortex. 2. Remote appearing left frontal lobe insular cortex injury. 3. Nonspecific white matter changes, likely secondary to small vessel ischemic disease.
[2023-04-23 12:28] VITALS: BP 133/90; PULSE 71
--- NOTE | 2023-04-23 13:33 | P.PN ---
Subjective Progress Note Date: 04/23/23 Patient is seen at bedside and he is accompanied with his who states he is somewhat minimally better today compared to yesterday. He continues to have difficulty getting his words out but again slightly better today. Otherwise no new neurological issues. Patient feels he is having some hearing and issues recently. Objective - Vital Signs Vital signs: Vital Signs Temp 97.6 F 04/23/23 07:32 Pulse 71 04/23/23 13:00 Resp 16 04/23/23 12:22 BP 133/90 04/23/23 12:22 Pulse Ox 98 04/23/23 12:22 FiO2 Intake & Output 04/22/23 04/23/23 04/23/23 18:59 06:59 18:59 Weight 56.699 kg Other: Voiding Method Toilet # Voids 1 - Exam GENERAL: The patient is sitting in a chair and is not in acute distress. CHEST: No carotid bruit bilaterally. NEUROLOGICAL: Higher mental function: The patient is awake, alert, oriented to self, place and time. Patient is slow responding to question. Has moderate to severe expressive aphasia. Patient is following simple commands. No neglect. Cranial nerves: The pupils are round, equal and reactive to light and accommodation. Visual sadler are full to confrontation throughout. Extraocular movement is intact no nystagmus is noted. Facial sensation is normal to touch throughout. The facial strength is normal throughout. Hearing is normal bilaterally to hand rub. Tongue is midline and moved [id number] without any difficulty. No dysarthria is noted. Shoulder shrug is normal bilaterally. Motor: The strength is 5 over 5 throughout. Normal tone and bulk. Cerebellum: Normal finger to nose heel to grady bilaterally. Sensation: Sensation is normal to touch throughout. Reflexes (right/left): 2+ throughout. Plantars are mute bilaterally. Some of the workup during his hospital visit consisted of: Hemoglobin A1c is 5.[address] of the head is reported as acute/subacute CVA involving left frontal lobe and left temporal lobe medially. I personally reviewed the CT I feel it's left frontal parietal and I agree with him and the temporal as well. There is no intraparenchymal bleed. CT angiography of the head and neck was reported as no evidence of dissection of the cervical internal carotid arteries or vertebral arteries or any evidence of significant stenosis at the carotid bifurcation. No evidence of intracranial high-grade stenosis or intracranial aneurysm. 2-D echo was reported as compressed left ventricle cavity. Severe right ventricular enlargement with pressure overload and severe pulmonary hypertension. Ejection fraction of 50-55%. - Labs CBC & Chem 7: 04/22/23 07:27 04/22/23 07:27 Labs: Abnormal Lab Results - Last 24 Hours (Table) 04/22/23 Range/Units 07:27 HDL Cholesterol 25.80 L (40.00-60.00) mg/dL Assessment and Plan Assessment: This is a 43-year-old gentleman with history of stroke about 5 years ago in which she had the slurred speech and gait difficulty that resolved was not compliant taking his medication and smokes 1 pack a day presents because 2 days prior to present the hospital he's been having difficulty getting his words out. Acute to subacute ischemic stroke over left frontal parietal temporal region. Patient has expresive aphasia and difficulty hearing. I think likely due to hypercoagulable especially with family history of stroke at a young age. History of old stroke about 5 years ago Severe right ventricular enlargement with pressure overload Severe pulmonary hypertension Tobacco use Noncompliant take his medication Not following-up for medical care Plan: Pending MRI the brain Continue aspirin 325 mg daily as well as Plavix 75 mg daily. At home the patient was only taking aspirin but was not compliant taking the medication. Continue Lipitor 80 mg daily at bedtime for secondary stroke prophylaxis Recommend a transesophageal echocardiogram to rule out any large PFO or atrial thrombus. Cardiology is consulted. On the 2-D echo the patient has severe right ventricular enlargement with pressure overload and severe pulmonary hypertension ESR 3, LEIDA is negative, xvko-[id number]-gqsqopzv DNA is negative, prothrombin G 2210 A mutation is negative, homocysteine is 12.3. Pending rest young hypercoagulable workup On every 4 hours neuro checks Cardiac monitoring. Consider an event monitor for 30 days if unknown source of stroke. Consulted PT OT and BODY BUILDER APPRENTICE Admitting routine EEG because of patient confusion that he had according to the prior to presenting our facility. Rule out seizure discharges which I feel is unlikely. Patient was counseled on tobacco cessation. He was counseled on follow-up with appointments and to follow-up with neurolo gist as an outpatient. We'll defer the rest of the medical management to the primary team For DVT prophylaxis On subcu heparin 5000 units every 8 hours The plan was discussed with the patient and his .
[2023-04-23 14:20] LABS: APTT 37 Sec(s) (<43); Dilute Russell Viper Venom 37 Sec(s) (<44)
--- NOTE | 2023-04-23 17:17 | P.PN ---
Progress Note - Text Progress Note Date: 04/23/23 I was notified by floor receptionist/telephone operator that patient left AMA.
--- NOTE | 2023-04-23 21:57 | EEG ---
ELECTROENCEPHALOGRAM REPORT CLINICAL HISTORY: This is a 43-year-old gentleman with recent acute stroke, who has confusion. The video EEG is obtained to evaluate for seizure and epileptiform activity. RELEVANT MEDICATION: The patient is not on any antiepileptic drug. EEG TYPE: A routine 21-channel EEG is performed with video using the 10/20 electrode placement system. DESCRIPTION: Wakefulness is only obtained. During awake state, the posterior-dominant rhythm consists of [id number] voltage of 8.5 to 9 Hz activity, that is well modulated and well sustained. There is no physiological stage II sleep architecture. There is delta slowing over the left temporal region. INTERICTAL AND ICTAL: None. ACTIVATION PROCEDURE: Photic stimulation did not evoke a posterior driving response. There is no abnormality during the photic stimulation. Hyperventilation was not performed. CLINICAL INTERPRETATION: This is an abnormal routine EEG. The focal slowing over the left temporal region is consistent with focal cerebral dysfunction, likely suggestive of the patient's recent stroke. Otherwise, the background is normal, and there is no epileptiform or seizure activity during the study. Clinical correlation is recommended. MMODL / IJN: [id number] / MTDD
[2023-04-24 00:30] LABS: Cardiolipin Ab IgG Interp Negative (Negative); Cardiolipin Ab IgM Interp Negative (Negative); Cardiolipin IgA Antibody <2.0 U/mL; Cardiolipin IgM Antibody <1.5 U/mL
[2023-04-25 00:07] LABS: Von Willebrand Factor Antigen 196 % (52-214)
--- NOTE | 2023-04-28 10:36 | P.DS ---
Providers Date of admission: 04/21/23 17:29 Expected date of discharge: 04/23/23 Attending physician: Malika Cazares Consults: 04/21/23 17:27 Consult Physician Routine Consulting Provider: Umer He Consult Reason/Comments: cva Do you want consulting provider notified?: Yes 04/22/23 12:14 Consult Physician Routine Consulting Provider: Farhat Francis Consult Reason/Comments: CVA, rule out hypercoagulable state Do you want consulting provider notified?: Yes Consult Physician Routine Consulting Provider: Tod Avery Consult Reason/Comments: CVA Do you want consulting provider notified?: Yes Primary care physician: Malika Cazares [facility] Course: Patient left AGAINST MEDICAL ADVICE Discharge diagnosis Acute ischemic stroke Expressive aphasia Mental status changes Previous history of stroke 5 years ago Previous history of valvular heart surgery in childhood Poor follow-up with medical care patient has not seen a physician in years Underlying history of tobacco abuse Hospital course Pa Awan, is a 43-year-old male who presented to [facility] emergency room with a chief complaint of speech difficulty, patient was having getting his words out, per family members patient had a stroke 5 years ago where he had slurred speech and gait disturbance, his symptoms have resolved from the old stroke, however he started having slurred speech 2 days ago, which has been worsening, patient started having confusion and his family decided to bring him to emergency room. He was evaluated in the emergency room vital examination on presentation revealed a temperature of 98.1 pulse 81 respiration 16 blood pressure 150/98 pulse ox 98% on room air Laboratory data revealed a white blood count of 7.4 hemoglobin 15.5 platelet count 186 sodium 136 potassium 4.4 chloride 104 CO2 24 BUN 13 creatinine 1.14 Testing in the emergency room revealed computed tomography scan of the brain revealed acute/subacute CVA involving the left frontal lobe and left temporal lobe medially, patient also had evidence of old left temporal lobe CVA with encephalomalacia. CT angiogram of the head and neck revealed no evidence of dissection of the cervical internal carotid arteries or vertebral arteries or any evidence of significant stenosis at the carotid bifurcation there was no evidence of intracranial high-grade stenosis or intracranial aneurysm. Chest x- ray done in the emergency room revealed no acute cardiopulmonary disease. Patient was admitted to medical floor for further evaluation and treatment Past medical history is significant for history of stroke 5 years ago, history of valve replacement as an infant, history of MRSA infections in the past, history of tricuspid valve insufficiency, history of right ventricular dysfunction. On 04/23/2023 patient is alert and oriented 3. Patient was started on intracranial ablation of Plavix and aspirin. Patient evaluated by pulmonary and cardiology services. Plans for MRI and EEG today. Hematology services also consulted for hypercoagulable state. Patient reports improvement with speech no further neurological symptoms. Patient denies chest pain or shortness of breath. Patient denies nausea vomiting or diarrhea. Patient denies any urinary burning or frequency According to nurse's notes patient left AGAINST MEDICAL ADVICE Plan - Discharge Summary Discharge Rx Participant: No New Discharge Prescriptions: No Action No Known Home Medications Discharge Medication List No Known Home Medications 10/24/19 [History] Follow up Appointment(s)/Referral(s): Malika Cazares MD [Primary Care Provider] - 1-2 days Discharge Disposition: LEFT AGAINST MEDICAL ADVICE
== END 2023-04-23 14:45 | disposition left against medical advice (07) | DRG 65 ==
LOC: EC 14:26 → 3SCARD 17:29
PROVIDERS: ADMIT Internal Medicine; ATTEND Internal Medicine
PROC: 4A10X4Z Monitoring of Central Nervous Electrical Activity, External Approach (ICD-10-PCS; principal; 2023-04-23)
DX: I63.532 Cerebral infarction due to unspecified occlusion or stenosis of left posterior cerebral artery (principal); D68.59 Other primary thrombophilia; G93.49 Other encephalopathy; R47.01 Aphasia; I36.1 Nonrheumatic tricuspid (valve) insufficiency; R47.9 Unspecified speech disturbances; Z86.14 Personal history of Methicillin resistant Staphylococcus aureus infection; Z86.73 Personal history of transient ischemic attack (TIA), and cerebral infarction without residual deficits; G93.89 Other specified disorders of brain; F17.210 Nicotine dependence, cigarettes, uncomplicated; I27.20 Pulmonary hypertension, unspecified; Z53.29 Procedure and treatment not carried out because of patient's decision for other reasons; Z79.82 Long term (current) use of aspirin; R01.1 Cardiac murmur, unspecified; Z91.148 Patient's other noncompliance with medication regimen for other reason; Z91.199 Patient's noncompliance with other medical treatment and regimen due to unspecified reason; Z95.2 Presence of prosthetic heart valve
CPT/HCPCS: 36415; 70450; 70496; 70498; 70551; 71046; 80053; 80061; 81240; 81241; 82550; 83036; 83090; 83735; 84100; 84443; 84484; 85025; 85246; 85300; 85301; 85302; 85303; 85305; 85306; 85610; 85613; 85652; 85730; 86038; 86140; 86147; 86225; 93005; 93306; 95816; 96360; 99291

== ENCOUNTER → 2023-06-22 | Day surgery (SDC) | payer BC, OTHER ==
[~2023-06-22] MED LIST: BENZOCAINE SPRAY 1 CAN TOPICAL ONE; IV FLUID CONTINUATION 500 ML IV ONE; LIDOCAINE 1% INJ 10MG/ML (20 ML MDV) ONE; LIDOCAINE 1% INJ 10MG/ML (20 ML MDV) SQ ONE; MIDAZOLAM 2 MG/2 ML VIAL IVP ONE; SODIUM CHLORIDE 0.9% 1,000 ML IV ONE; SODIUM CHLORIDE 0.9% 1,000 ML IV SCH; fentaNYL (PF) 50 MCG/ML 2 ML AMP ONE
[2023-06-22 09:10] VITALS: TEMP 97.7
[2023-06-22] MEDS: fentaNYL (PF) 50 MCG/ML 2 ML AMP IVP ONE ×4 (10:59→11:08)
[2023-06-22] MEDS: MIDAZOLAM 2 MG/2 ML VIAL IVP ONE ×2 (11:00→11:03)
[2023-06-22 11:42] VITALS: RESP 16
--- NOTE | 2023-06-22 16:37 | P.TEE ---
Description of Procedure(s): Procedure performed: Transesophageal Echocardiogram with color flow doppler, pulsed wave doppler and continuous wave doppler, moderate conscious sedation Moderate conscious sedation: Moderate conscious sedation was supplied with direct supervision of myself using Versed and Fentanyl. 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 Patient was brought to the lab in a fasting state. Patient was given IV Versed and Fentanyl for sedation. The throat was sprayed with Hurricane to anesthetize the throat. A lubricated Omni probe was then introduced into the esophagus and stomach and multiple views were obtained. 2D echo with color flow doppler, pulsed wave doppler and continuous wave doppler was utilized. Agitated saline bubbles were injected to assess for any intra-atrial shunt. The probe was then removed. Patient tolerated the procedure well. Patient was transferred to the post procedure area in stable and satisfactory condition. FINDINGS: 1. The aortic valve is tricuspid and functioning normally. 2. The mitral valve appears be normal with mild mitral regurgitation. 3. Tricuspid valve appears to be normal with mild to moderate tricuspid regurgitation. 4. There is transposition of the great arteries with Mustard baffle with no baffle leak 5. Left and right atrial appendage is free of clot. 6. There is no shunt by agitated saline 7. The morphologic RV feeds the aortic valve and systemic circulation with RV EF 50-55% 8. The left ventricular EF is 50-55%
--- NOTE | 2023-06-22 16:56 | P.PCN ---
Description of Procedure: Procedure: Insertion of Linq loop recorder Indication: Cryptogenic stroke, D transposition of the great arteries CONSENT:I have discussed the risks, benefits and alternative therapies for the above-mentioned procedure. The patient has indicated understanding and acceptance of the risks and procedures discussed. PROCEDURE: Patient was brought to the catheterization lab in a fasting state. Patient was prepped and draped in the usual fashion. 1% lidocaine was used to anesthetize the area of the left third intercostal space. Using the loop recorder incision device, a small 0.5 cm incision was made in the left 3rd intercostal space. Next the Linq loop recorder was deployed in the 3rd intercostal space subcutaneously using the insertion tool. Thresholds were checked and were excellent at 0.4 V. Next the incision was closed using Dermabond. Steristrips were placed over the incision and the procedure was completed. The patient tolerated the procedure well. The patient was transported to the post cath holding area in stable condition. Linq loop recorder serial number: [id number]
[2023-06-22 17:26] VITALS: PULSE 78
[2023-06-22 17:29] VITALS: BP 125/75
== END ==
LOC: CATHCVL 08:33
PROVIDERS: ATTEND Internal Medicine
DX: I34.0 Nonrheumatic mitral (valve) insufficiency (principal); I07.1 Rheumatic tricuspid insufficiency; Q20.3 Discordant ventriculoarterial connection; I63.9 Cerebral infarction, unspecified; E78.5 Hyperlipidemia, unspecified; I27.20 Pulmonary hypertension, unspecified; Z79.82 Long term (current) use of aspirin; Z79.02 Long term (current) use of antithrombotics/antiplatelets; Z79.899 Other long term (current) drug therapy; Z86.14 Personal history of Methicillin resistant Staphylococcus aureus infection; Z87.891 Personal history of nicotine dependence; Z98.890 Other specified postprocedural states
CPT/HCPCS: 93312; 93320; 93325; 33285; J2250; J0690; J2001; J3010

== ENCOUNTER → 2023-10-21 | Outpatient (CLI) | payer BC, OTHER ==
[2023-10-21 11:35] LABS: Calcium 9.2 mg/dL (8.7-10.3); Carbon Dioxide 29.1 mmol/L (21.6-31.8); Chloride 106 mmol/L (96-109); Glucose 100 mg/dL (70-110); Potassium 4.3 mmol/L (3.5-5.5); Sodium 143 mmol/L (135-145)
== END | disposition home or self-care (01) ==
LOC: LABWHC1 08:30
PROVIDERS: ATTEND Internal Medicine
DX: I51.9 Heart disease, unspecified (principal); Z98.890 Other specified postprocedural states
CPT/HCPCS: 36415; 80048